=== PATIENT | male | born 1965 | race Caucasian/White ===

== ENCOUNTER 2016-11-11 20:53 | Inpatient (IN) | payer MEDICAID ==
[~2016-11-11] VITALS: Ht 182.9 cm; Wt 52.4 kg
[~2016-11-11 20:53] MED LIST: APAP/HYDROCODON1 T13 PO; BG MC; CLEOCIN HCL300 MG PO; COL100 PO; ECO81 PO; GLU850 PO; HUMI SC; LAC PO; LANTI; LANTI SC; MAC100 PO; THERAGRAN-M1 TA4 PO; ZES10 PO; ZOC10 PO
--- NOTE | 2016-11-12 01:33 | NUR ---
PT PRESENTS TO THE ED WITH THE COMPLAINT OF LEFT KNEE SWELLING. PT REPORTS, "ITS BEEN SWOLLEN FOR A COUPLE OF WEEKS NOW BUT ITS CAUSING ME PAIN NOW SO I CAME IN." THERE IS OBVIOUS SWELLING NOTED TO THE LEFT KNEE. NO ERYTHEMA PRESENT AND SKIN IS NOT HOT TO TOUCH IN COMPARISON TO THE RIGHT KNEE. DR. DICK STATES THAT IT IS A KNEE EFFUSION.
--- NOTE | 2016-11-12 01:34 | NUR ---
DR. DICK DRAINED SYNOVIAL FLUID FROM THE PTS LEFT KNEE.
--- NOTE | 2016-11-12 01:58 | NUR ---
REPORT RECEIVED FROM NAE DIAZ AND ASSUMED CARE OF PATIENT. PATIENT UPDATED ON PLAN OF CARE
[2016-11-12 02:05] LABS: BASOPHIL % 0.5 % (0-2)
[2016-11-12 02:11] LABS: PLATELET COUNT 453 x10^3mcL (130-400); RED CELL DISTRIBUTION WIDTH 15.3 % (11.5-14.5)
[2016-11-12 02:13] LABS: CARBON DIOXIDE 23.4 mmol/L (21-32); CREATININE SERUM 2.7 mg/dL (0.7-1.3); POTASSIUM SERUM 4.3 mmol/L (3.5-5.1)
[2016-11-12 02:17] LABS: BILIRUBIN TOTAL 0.27 mg/dL (0.20-1.00)
[2016-11-12 02:32] LABS: ALBUMIN 1.9 g/dL (3.4-5.0); TOTAL PROTEIN, SERUM 8.7 g/dL (6.4-8.2)
[2016-11-12 04:00] LABS: APPEARANCE FLUID CLOUDY; COLOR FLUID YELLOW; SITE FLUID LEFT; SOURCE FLUID SYNOVIAL FLUID
[2016-11-12 04:01] LABS: RBC FLUID 15800 /cumm; WBC FLUID 57200 /cumm
[2016-11-12 04:12] LABS: rbc morphology (normal/abnorm) ABNORMAL (NORMAL)
[2016-11-12 04:31] LABS: LYMPHOCYTE FLUID 3 %
--- NOTE | 2016-11-12 04:47 | NUR ---
EYES CLOSED, RESPIRATIONS EVEN AND UNLABORED, PT REMAINS ON MONITOR, AWIAINTG DISPO.
--- NOTE | 2016-11-12 06:06 | NUR ---
PATIENT GIVEN URINAL AND ASKED TO URINATE. 24 GAUGE PLACED IN RIGHT HAND.
[2016-11-12 06:34] LABS: MAGNESIUM 1.5 mg/dL (1.8-2.4); PHOSPHOROUS 4.1 mg/dL (2.5-4.9)
[2016-11-12 06:43] LABS: T3 TOTAL 0.71 ng/mL
[2016-11-12 06:44] LABS: FREE T4 1.4 ng/dL (0.76-1.46); FREE THYROXINE INDEX 3.2 ug/dL (1.4-4.5); T4(THYROXINE) 8.8 ug/dL (4.7-13.3)
--- NOTE | 2016-11-12 07:12 | NUR ---
REPORT GIVEN TO JADEN. PT RESTING, EYES CLOSED, RESPIRATIONS ARE EVEN AND UNLABORED.
--- NOTE | 2016-11-12 08:05 | NUR ---
NO DOCUMENTED IV INFO ON PREVIOUS IV FLUIDS
--- NOTE | 2016-11-12 08:10 | NUR ---
REPORT CALLED TO FRANCO DIAZ, SHE WILL ASSUME CARE PRIMARY POST TRASNFER.
[2016-11-12 08:50] VITALS: BP 151/95
[2016-11-12 09:15] VITALS: BP 151/95
--- NOTE | 2016-11-12 09:20 | NUR ---
RECEIVED PT WITH C/O L KNEE SWELLING AND PAIN X3 WEEKS. WITH SERGEI WRAP TO L KNEE C/D/I. R BKA. PT USES WHEELCHAIR. RESP EVEN AND UNLABORED ON RA. C/O 7/10 L KNEE PAIN ON MOVEMENT, NO PAIN AT REST. TOLERABLE AT THIS TIME. IV TO RFA. ORIENTED TO ROOM AND SURROUNDINGS. BED IN LOWEST POSITION, CALL LIGHT WITHIN REACH. WILL CONTINUE TO MONITOR.
[2016-11-12 11:26] LABS: BASOPHIL % 0.6 % (0-2); PLATELET COUNT 389 x10^3mcL (130-400)
[2016-11-12 11:27] LABS: RED CELL DISTRIBUTION WIDTH 15.4 % (11.5-14.5)
[2016-11-12 11:42] LABS: CALCIUM 8.2 mg/dL (8.5-10.1); CARBON DIOXIDE 30.1 mmol/L (21-32); CREATININE SERUM 2.7 mg/dL (0.7-1.3); POTASSIUM SERUM 4.8 mmol/L (3.5-5.1)
--- NOTE | 2016-11-12 12:12 | NUR ---
SPOT CHECKED BLOOD GLUCOSE = 167. PT ASYMPTOMATIC AT THIS TIME. WILL CONTINUE TO MONITOR.
--- NOTE | 2016-11-12 12:38 | NUR ---
PT RESTING IN BED COMFORTABLY. NO ACUTE DISTRESS. PT NOT COMPLAINING OF ANY PAIN. PT COMPLAINING OF KNEE PAIN UPON MOVING, PT STATES IT IS TOLERABLE AT THIS TIME. BED IN LOWEST POSITION. CALL LIGHT WITHIN REACH. WILL CONTINUE TO MONITOR.
--- NOTE | 2016-11-12 13:59 | NUR ---
PT NOT IN ANY ACUTE DISTRESS. PT SITTING UP IN BED EATING LUNCH. PT NOT COMPLAINING OF ANY PAIN AT THIS TIME. BED IN LOWEST POSITION. CALL LIGHT WITHIN REACH. WILL CONTINUE TO MONITOR.
--- NOTE | 2016-11-12 15:57 | NUR ---
NEW IV TO [facility] 2OG STARTED BY DR. HERNANDEZ.
[2016-11-12 17:20] VITALS: BP 135/80
--- NOTE | 2016-11-12 18:22 | NUR ---
PT IN NO ACUTE DISTRESS. PT NOT COMPLAINING OF ANY PAIN AT THIS TIME. BED IN LOWEST POSITION. CALL LIGHT WITHIN REACH. IV FLUIDS INFUSING. WILL CONTINUE TO MONITOR.
--- NOTE | 2016-11-12 18:51 | NUR ---
I HAVE REVIEWED THE DATA COLLECTION BY STUDENT (NAME): MADI OWEN ENTERED ON (DATE/TIME): 11/12/16 I CONCUR WITH THE DATA AND ANY EXCEPTIONS OR COMMENTS ARE LISTED BELOW:
--- NOTE | 2016-11-12 18:53 | NUR ---
NURSING CO-SIGN THE DOCUMENTATION ENTERED BY THE IP HAS BEEN REVIEWED. REVIEWED/CO-SIGNED BY: Slime Jama DOCUMENTATION DONE BY: MADI OWEN
--- NOTE | 2016-11-12 20:00 | NUR ---
ASLEEP, EASILY AWAKENED. ORIENTED X 4. SPEECH CLEAR AND APPROPRIATE. HOB ELEVATED 30 DEG. UPPER SIDE RAILS IN RAISED POSITION, BED IN LOWEST POSITION. CALL LIGHT WITHIN EASY REACH. BREATHING EVEN AND UNLABORED ON ROOM AIR. IVF OF NS AT 100ML/HR. DENIES HAVING PAIN AT THIS TIME. DRESSING TO LEFT KNEE CDI. ELEVATED ON PILLOW.
[2016-11-12 21:41] VITALS: BP 131/67
--- NOTE | 2016-11-12 23:24 | NUR ---
URINE SPECIMEN SENT TO LAB
--- NOTE | 2016-11-12 23:25 | NUR ---
AWAKE AND ALERT, ASKED TO HAVE SOME COFFEE.
[2016-11-13] LABS: microscopic required? YES; urine erythrocyte 2+ (NEGATIVE)
--- NOTE | 2016-11-13 00:40 | NUR ---
ua positive for trace leukocytes and few budding yeast. informed dr. hernandez via [facility].
--- NOTE | 2016-11-13 00:57 | NUR ---
DR NEVAREZ CONFIRMED AWARE OF UA RESULTS
--- NOTE | 2016-11-13 03:52 | NUR ---
EYES CLOSED, BREATHING EVEN AND UNLABORED ON ROOM AIR. CALL LIGHT WITHIN EASY REACH.
[2016-11-13 06:22] VITALS: BP 156/77
[2016-11-13 06:42] LABS: BASOPHIL % 0.4 % (0-2)
[2016-11-13 06:53] LABS: PLATELET COUNT 441 x10^3mcL (130-400); RED CELL DISTRIBUTION WIDTH 15.7 % (11.5-14.5)
[2016-11-13 06:59] LABS: CALCIUM 7.7 mg/dL (8.5-10.1); CARBON DIOXIDE 22.5 mmol/L (21-32); CREATININE SERUM 2.1 mg/dL (0.7-1.3); MAGNESIUM 2.1 mg/dL (1.8-2.4); PHOSPHOROUS 2.9 mg/dL (2.5-4.9); POTASSIUM SERUM 4.4 mmol/L (3.5-5.1)
--- NOTE | 2016-11-13 07:15 | NUR ---
ENDORSED TO NURSE MICHELLE. DENIES HAVING PAIN AT THIS TIME. AWAKE AND ALERT.
[2016-11-13 07:30] VITALS: BP 154/83
--- NOTE | 2016-11-13 12:22 | NUR ---
PT IN NO ACUTE DISTRESS. PT NOT COMPLAINING OF ANY PAIN AT THIS TIME. PT RESTING COMFORTABLY IN BED. LFT KNEE ELEVATED WITH PILLOW. NO DRAINAGE. IV FLUIDS INFUSING. BED IN LOWEST POSITION. CALL LIGHT WITHIN REACH. WILL CONTINUE TO MONITOR.
[2016-11-13 13:53] VITALS: BP 156/90
--- NOTE | 2016-11-13 14:20 | NUR ---
PT IN NO ACUTE DISTRESS. PT RESTING COMFORTABLY NOT COMPLAINING OF ANY PAIN AT THIS TIME. IV FLUIDS INFUSING. BED IN LOWEST POSITION. CALL LIGHT WITHIN REACH. WILL CONTINUE TO MONITOR.
--- NOTE | 2016-11-13 16:50 | NUR ---
DR. FLORES AT BEDSIDE EARLIER PERFORMING PROCEDURE. ASPIRATED 90 ML FLUID FROM L KNEE. BAND AID AND SERGEI WRAP APPLIED TO L KNEE. PT C/O 10/10 L KNEE PAIN, WILL MEDICATE ORDERED.
[2016-11-13 17:12] VITALS: BP 173/91
[2016-11-13 18:00] LABS: APPEARANCE FLUID CLOUDY; COLOR FLUID PALE YELLOW; SITE FLUID LEFT; SOURCE FLUID SYNOVIAL FLUID
[2016-11-13 18:23] LABS: WBC FLUID 51000 /cumm
[2016-11-13 18:24] LABS: LYMPHOCYTE FLUID 5 %; RBC FLUID 16600 /cumm
[2016-11-13 19:26] LABS: RED BLOOD CELLS 3.41 M/mm3 (4.52-5.90)
--- NOTE | 2016-11-13 19:31 | NUR ---
AAO X 4. SPEECH CLEAR AND APPROPRIATE. BREATHING EVEN AND UNLABORED ON ROOM AIR. HOB ELEVATED 30 DEG. WITH MALE VISITOR. PT IVF AT 100ML/HR. SERGEI WRAP TO LEFT LEG CDI.
[2016-11-13 19:34] LABS: IRON 17 ug/dL (65-170); TOTAL IRON BINDING CAPACITY 143 ug/dL (250-450)
[2016-11-13 20:18] VITALS: BP 112/62
[2016-11-14] VITALS (7 sets, daily range): BP systolic 141–204; BP diastolic 79–114
--- NOTE | 2016-11-14 00:58 | NUR ---
EYES CLOSED, BREATHING EVEN AND UNLABORED ON ROOM AIR. CALL LIGHT WITHIN EASY REACH.
--- NOTE | 2016-11-14 06:01 | NUR ---
BLOOD SUGAR 55, TEST REPEATED 56. AWAKE AND ALERT. DID NOT WANT THE D50 IVP. DRANK 1 CUP APPLE JUICE WITH 3 PACKS SUGAR, ATE 1 CUP PUDDING, EATING SANDWICH. INFORMED DR. NEVAREZ.
--- NOTE | 2016-11-14 06:33 | NUR ---
BLOOD SUGAR RECHECKED, 74/MIN. PT AWAKE AND ALERT. PROVIDED WITH 2 CUPS OF PUDDING AND 1 CUP APPLE JUICE.
--- NOTE | 2016-11-14 06:33 | NUR ---
DR. KEENE IN ROOM, INFORMED BLOOD SUGAR THIS AM WAS 55.
--- NOTE | 2016-11-14 07:11 | NUR ---
TELEMONITOR TO TELE #[id number], SINUS RHYTHM. AWAKE AND ALERT, BREATHING EVEN AND UNLABORED. CALL LIGHT WITHIN EASY REACH.
--- NOTE | 2016-11-14 07:12 | NUR ---
ENDORSED TO NURSE CASTANEDA.
--- NOTE | 2016-11-14 07:12 | NUR ---
NOTED NEW ORDER REDUCING LEVEMIR DOSE TO 20 UNITS AT NIGHT.
--- NOTE | 2016-11-14 07:30 | NUR ---
AAO X4.DENIES ANY PAIN/DISCOMFORT AT THE MOMENT.LUNGS CLEAR.ON SR ON THE MONITOR.IVF NS GOING AT 100 ML/HR INFUSING WELL.L KNEE WITH SERGEI BANDAGE CDI.S/P L KNEE FLUID ASPIRATIN ON 11/13. ALSO HX OF R BKA.CALL LIGHT WITHIN REACH.INSTRUCTED TO CALL FOR ANY PAIN/DISCOMFORT.WILL CONTINUE TO MONITOR PT.
--- NOTE | 2016-11-14 08:50 | NUR ---
AND MEDICINE TEAM AT BEDSIDE.PT IN THE RESTROOM.WILL COME BACK LATER.INFORMED PRIMARY NURSE THAT PT TO D/C HOME IF OK WITH .
[2016-11-14 16:34] LABS: AMPHETAMINE QUAL UR NONE DETECTED (NEG <=1000)
--- NOTE | 2016-11-14 17:33 | NUR ---
GAVE PT NITRO 0.4 MG SL FOR FA=958/99 WILL RECHECK BP AFTER.
--- NOTE | 2016-11-14 17:59 | NUR ---
RECHECKED FF=516/93 (117) HR=90 AFTER NITRO SL.
--- NOTE | 2016-11-14 18:25 | NUR ---
NO SIGNIFICANT CHANGE NOTED.WILL ENDORSE TO NEXT SHIFT.
--- NOTE | 2016-11-14 20:15 | NUR ---
PT A/A/O X4. DENIES DIZZINESS AND HEADACHE. BREATH SOUNDS CLEAR. BREATHING EVEN AND UNLABORED ON ROOM AIR. DENIES CHEST PAIN AND PRESSURE. BOWEL SOUNDS ACTIVE. NO C/O N/V AND ABD PAIN. DRESSING ON THE LEFT KNEE NOTED C/D/I. BKA NOTED ON THE RLE. NEW IV PLACED ON THE RIGHT SHOULDER 20G INFUSING WITH NS AT 100 ML/HR. IV ON THE VINCENT LEAKING AND TAKEN OF. MADE PT COMFORTABLE. PLACED CALL LIGHT WITH IN REACH. WILL CONTINUE TO MONITOR.
--- NOTE | 2016-11-14 21:00 | NUR ---
BLOOD PRESSURE OF THE PT 207/[address] NEVAREZ NOTIFIED. ORDERED LISINOPRIL PO. PT TOLERATED IT WELL. WILL CONITNUE TO MONITOR.
--- NOTE | 2016-11-14 22:20 | NUR ---
PT BP IS 186/103 HR 94. PT [address] NEVAREZ NOTIFIED. WAITING FOR NEW ORDERS. WILL CONTINUE TO MONITOR.
--- NOTE | 2016-11-14 23:07 | NUR ---
GAVE PT METOPROLOL PO FOR HIGH BP. WILL CONTINUE TO MONITOR.
[2016-11-15 00:10] VITALS: Ht 182.9 cm; Wt 52.4 kg
[2016-11-15 01:38] VITALS: BP 161/85
--- NOTE | 2016-11-15 01:42 | NUR ---
BP 161/85 HR [address] NEVAREZ NOTIFIED. WILL CONTINUE TO MONITOR.
--- NOTE | 2016-11-15 01:49 | NUR ---
PATIENTS BP 161/83 HR 79. GAVE PT NITRO SUBLIGUAL. DR. NEVAREZ NOTIFIED. WILL CONTINUE TO MONITOR.
--- NOTE | 2016-11-15 02:30 | NUR ---
BP 163/83. WILL CONTINUE TO MONITOR.
--- NOTE | 2016-11-15 02:54 | NUR ---
PT C/O GENERALIZED PAIN. GAVE PT MORPHINE IVP. PT TOLERATED IT WELL. WILL CONTINUE TO MONITOR.
[2016-11-15 05:19] VITALS: BP 142/89
--- NOTE | 2016-11-15 05:20 | NUR ---
PT QUIET AND RESTING. NO C/O PAIN THUS FAR. BP 142/89, HR 73. DR. NEVAREZ AWARE. IV INTACT AND INFUSING ORDER. WILL ENDORSE TO THE AM NURSE ACCORDINGLY.
--- NOTE | 2016-11-15 06:43 | NUR ---
PT C/O PAIN. GAVE PT MORPHINE IVP. PT TOLERATED IT WELL. WILL ENDORSE TO THE AM NURSE ACCORDINGLY.
--- NOTE | 2016-11-15 07:56 | NUR ---
RECEIVED PT LAYING IN BED AWAKE AND ALERT. IV TO R SHOULDER APPEARS PATENT AND INFUSING WELL. PT STATES THAT HE FEELS HIS SUGAR FEELS LOW. LAST ACCUCHECK WAS 86. GAVE HIM TO CUPS OF APPLE JUICE. WILL REASSESS WITHIN HALF HOUR. CALL LIGHT WITHIN REACH, BED IN LOWEST POSITION. WILL CONTINUE TO MONITOR
[2016-11-15 09:23] VITALS: BP 150/90
--- NOTE | 2016-11-15 10:59 | NUR ---
PT LAYING IN BED WATCHING TV, NO APPARENT SIGNS OF ACUTE DISTRESS NOTED AT THIS TIME. IV INFUSING WELL. CALL LIGHT WIHTIN REACH. BED IN LOWEST POSITION. WILL CONTINUE TO MONITOR
--- NOTE | 2016-11-15 12:35 | NUR ---
PT BP 164/89 HR 75. GIVEN NITRO SUBLINGUAL PRN. STOPPED IV FLUIDS AT THIS TIME. PT DENIES PAIN OR DISCOMFORT. WILL CONTINUE TO MONITOR. CALL LIGHT WITHIN REACH, BED IN LOWEST POSITION
[2016-11-15 12:56] VITALS: BP 164/89
--- NOTE | 2016-11-15 13:23 | NUR ---
DR. CHOU AWARE OF PT BP, PRN NITRO, AND HOLD ON IV FLUIDS. WILL CONTINUE TO MONITOR
[2016-11-15] MEDS ORDERED: LEVAQUIN250 M1 PO (15:25)
--- NOTE | 2016-11-15 15:28 | NUR ---
PT RESTING IN BED WATCHING TV. SPOKE TO PT IN REGARDS TO DISCHARGE. ACCORDING TO DOCTOR, PT WILL NOT BE DISCHARGING UNTIL THE BLOOD CULTURE RESULT COME BACK, [facility] IS EXPECTED TOMORROW. PT APPEARS RECEPTIVE AND AGREES TO PLAN OF CARE. CALL LIGHT WITHIN REACH. BED IN LOWEST POSITION. WILL CONTINUE TO MONITOR
[2016-11-15] MEDS ORDERED: LAC PO (15:38)
[2016-11-15] MEDS ORDERED: CATAPRES0.1 MG PO (15:38)
--- NOTE | 2016-11-15 16:05 | NUR ---
Initial Nutrition Assessment Dx: Left knee effusion, possible septic joint PMHx: Right BKA (2011), I&D of left foot abscess (November 2014) PSHx:Right BKA (2011) Labs: (11/13) BL, BUN:29H, Cr:2.1H, Ca:7.7L,H/H:7.9/25L (11/12) Alb:1.9L, HDL:30L, Lipase:62L, A1c:7.4H, Meds: Colace, Ferrous Sulfate, Humalog, Humilin, Lactinex, Levemir, Prilosec, NS IVF, Theragran, Zofran. Diet:CCHO PO Intake: (11/12) snack: sandwich (11/13) B:100%, L:90%, snack: sandwich, (11/14) B:100%. L:50%, D:40%, snack: sandwich. (11/15) B:100%, grahma crakers, jello pudding, apple juice Ht: 72in, 6ft Wt: 115#, 52.36kg, Corrected BMI with current body weight and BKA is 22.7kg/m2 (normal weight) IBW: 167#, 76kg with BKA %IBW: 99% UBW:160#, per pt. (11/12) wt: 72.57kg, 158# Age:51 Food Allergies:None Skin:aspiration of the left knee, Jonathan:18 Edema:LLE GI: Last BM 11/13 Pt admitted with left knee swelling 2/2 possible infectious arthritis with effusion, per H&P. Pt is s/p left knee joint drainage x 2 with white blood cells found in fluid. Dr. Reyes cleared the pt as long as culture and sensitivities was negative. Late in the day, the culture from the synovial fluid came back positive for Staph aureus and additional antibiotics were ordered. Nurses were trying to obtain a new line in the right nath d after discovering the peripheral line obtained earlier had failed, per progress note 11/14. During visit, pt reported usual body weight of 160#, not admit wt of 115#. Pt looks closer to UBW and weight recorded on 11/12 was 72.57kg, 158#. Possible discharge today. Problem with: N:No V:No D:No C:No Problems with: Chewing: Swallowing: Current appetite: good Recent wt change:2# wt loss %wt change:1.25% Vitamin/Supplement use:No Special diet at home:Regular Physical activity:No Education: pt declined education Estimated Nutritional Needs Based on ideal body weight 76kg with BKA Energy: 1900-2280kcal/d (25-30kcal/kg for adult maintenance) Protein: 76g/d (1g/kg for adult maintenace Fluid: 1900-2280ml/d (1 ml/kcal) or per doctor Nutrition Diagnosis 1. Altered nutrition labs realted to diabetes as evidenced by A1c:7.4 Intervention 1.Recommend continue with current diet order. Monitor/Evaluate Goal: PO intake at least 75% of estimated needs Monitor: PO intake, Labs, GI function F/U in 7 days as low risk 11/22
--- NOTE | 2016-11-15 16:54 | NUR ---
PT BP 182/[address] VELEZ AND HE IS AWARE. ORDER PUT IN FOR CATAPRES PO. CALLED PHARMACY TO GET ORDER VERIFIED SO THAT CAN PROCEED WITH ADMINISTRATION OF MEDICATION
[2016-11-15 17:50] VITALS: BP 142/97
--- NOTE | 2016-11-15 18:18 | NUR ---
PT BP DOWN TO 142/97. CALL LIGHT WITHIN REACH. WILL CONTINUE TO MONITOR
--- NOTE | 2016-11-15 19:30 | NUR ---
PT IS A/O X4, VERBAL RESPONSIVE, ABLE TO TELL WHAT HE NEEDS. LUNG SOUND CLEAR BILATERAL, NO COUGH, NO SOB, PT IS ON TELE 22, NSR, DENY ANY CHEST PAIN OR DISCOMFORT, BOWEL SOUND PRESENT ALL 4 QUADRANTS, NO DISTENTION, NO TENDER. PT HAS RIGHT BKA, LEFT KNEE ARE SWELLING, S/P ASPIRATION SIDE AT LEFT KNEE WAS COVERED WITH BANDAID, NO BLEEDING, NO DRAINAGE, IV AT RIGHT SHOULDER, DRESSING INTACT, FLUSHED WELL, ALL ADLS ASSIST, ALL NEED MET, CALL LIGHT IN REACH, WILL CONTINUE TO MONITOR.
--- NOTE | 2016-11-15 19:40 | NUR ---
PT C/O HAS HEROIN WITHDRAW, PT STATE FELT ANXIOUS AT THE TIME, CALLED DR. CHAVEZ, REGARDING THE PT SITUATION, MADE AWARE.
--- NOTE | 2016-11-15 21:00 | NUR ---
TALKED TO DR. CHAVEZ AGAIN REGARDING THE PT STATE HAS WITHDRAW FROM HEROIN, DR. CHAVEZ WENT TO PT ROOM AND ASSESS THE PT. STATE WILL ORDER ATIVAN FOR THE PT. WAITING FOR NEW ORDER.
[2016-11-16] VITALS (8 sets, daily range): BP systolic 132–190; BP diastolic 82–100
--- NOTE | 2016-11-16 05:09 | NUR ---
PT IS AWAKE, VERBAL RESPONSIVE, DENY ANY RESPIRATORY DISTRESS, DENY ANY PAIN OR DISCOMFORT, IV AT RIGHT SHOULDER, NO LEAKING, NO INFILTRATION. ALL ADLS ASSIST, ALL NEED MET, CALL LIGHT IN REACH, WILL CONTINUE TO MONITOR.
--- NOTE | 2016-11-16 05:41 | NUR ---
REPORT TO DR. CHAVEZ REGARDING THE PT B/P IS 180/91 AT THIS MOMENT, DR. CHAVEZ MADE AWARE, WAITING FOR NEW ORDER.
--- NOTE | 2016-11-16 07:15 | NUR ---
PT ON WHEELCHAIR. ABLE TO LET NEEDS KNOWN. NOTICEABLE LEFT KNEE SWELLING. PT ABLE TO TRANSFER INDEPENDENTLY. IV TO RIGHT SHOULDER. LOCKED #20. WILL CONTINUE TO MONITOR.
--- NOTE | 2016-11-16 11:20 | NUR ---
PT C/O AGITATION. ADMINISTERED MEDICATION PER EMAR. PT TOLERATED WELL. WILL CONTINUE TO MONITOR.
--- NOTE | 2016-11-16 12:15 | NUR ---
PT STILL REMAINS AGITATED. PT STATES HE WAS DOING HEAVY HEROIN USE. CONTACTED DR. VELEZ. WILL CONTINUE TO MONITOR.
--- NOTE | 2016-11-16 12:50 | NUR ---
PT STATES SURGEON EXPLAINED PROCEDURE BENEFITS AND RISKS. WITNESSED CONSENT TO SURGERY.
--- NOTE | 2016-11-16 15:35 | NUR ---
PT SITTING AT SIDE OF BED. STATES HEADACHE HAS SUBSIDED. STATES KNEE PAIN HAS DCREASED 07/21. MOTHER AT BEDSIDE. CALL LIGHT WITHIN REACH.
--- NOTE | 2016-11-16 19:50 | NUR ---
PT IS A/O X4, VERBAL RESPONSIVE, ABLE TO TELL WHAT HE NEEDS. LUNG SOUND CLEAR BILATERAL, NO COUGH, NO SOB, PT DENY ANY CHEST PAIN OR DISCOMFORT, BOWEL SOUND PRESENT ALL 4 QUADANTS, NO DISTENTION, NO TENDER. PT HAS RIGHT BKA, AND LEFT KNEE IS SWELLING, PT IS GOING TO SURGERY TOMORROW. IV AT RIGHT SHOULDER, NO LEAKING, NO INFILTRATION. ALL ADLS ASSIST, ALL NEED MET, CALL LIGHT IN REACH, WILL CONTINUE TO MONITOR.
--- NOTE | 2016-11-16 20:30 | NUR ---
PT STATE HE HAS HEROIN WITHDRAW, REQUEST FOR ATIVAN IVP. CALLED AND TALKED TO DR. CHAVEZ, MADE AWARE, WAITING FOR NEW ORDER.
--- NOTE | 2016-11-16 22:30 | NUR ---
GAVE THE ATIVAN IVP AT 2100, RECHECKED PT. PT IS CALM AND STATE HE IS BRYAN NOW. WILL CONTINUE TO MONITOR THE PT.
--- NOTE | 2016-11-16 22:58 | NUR ---
PT B/P IS 190/99, GIVE THE NITRO SL, RECHECK AGAIN, PT B/P STILL 188/100, CALL THE DR. CHAVEZ, WAITING FOR NEW ORDER.
[2016-11-17 01:00] VITALS: BP 122/63
--- NOTE | 2016-11-17 01:00 | NUR ---
RECHECK THE PT B/P 122/63, HR 78, WILL CONTINUE TO MONITOR THE PT
--- NOTE | 2016-11-17 05:16 | NUR ---
PT IS AWAKE AND VERBAL RESPONSIVE, DENY ANY RESPIRATORY DISTRESS, DENY ANY PAIN OR DISCOMFORT, IV AT RIGHT SHOULDER, NO LEAKING, NO INFILRATION. PT HAS BEEN NPO SINCE MID NIGHT, ALL ADLS ASSIST ALL NEED MET, CALL LIGHT IN REACH, WILL CONTINUE TO MONITOR.
[2016-11-17 05:56] VITALS: BP 144/68
--- NOTE | 2016-11-17 06:02 | NUR ---
PT START THROW UP, AND ZOFRAN IVP IS GIVEN, BUT PT STATE IT FROM HEROIN WITHDRAW, ASKED IF HE CAN HAS ANOTHER ATIVAN IVP. CALLED AND TALKED TO DR. CHAVEZ, DR. CHAVEZ MADE AWARE, WAITING FOR NEW ORDER.
--- NOTE | 2016-11-17 07:52 | NUR ---
PT IS A/O X4, VERBAL RESPONSIVE, LUNG SOUND CLEAR BILATERAL, NO COUGH, NO SOB, DENY ANY CHEST PAIN OR DISCOMFORT, BOWEL SOUND PRESENT ALL 4 QUADANTS, NO DISTENTION, NO TENDER. PT HAS SWELLING AT LEFT KNEE, RIGHT BKA, PT IV AT RIGHT SHOULDER START LEAKING, UNABLE TO GET IV ACCESS, CALLED ER NURSE, CAME TO START THE IV AT LEFT IJ, ALL ADLS ASSIST, ALL NEED MET, CALL LIGHT IN REACH, WILL CONTINUE TO MONITOR.
[2016-11-17 08:16] LABS: CALCIUM 7.8 mg/dL (8.5-10.1); CARBON DIOXIDE 24.4 mmol/L (21-32); CREATININE SERUM 1.9 mg/dL (0.7-1.3); POTASSIUM SERUM 4.3 mmol/L (3.5-5.1)
[2016-11-17 10:34] VITALS: BP 164/87
--- NOTE | 2016-11-17 11:44 | NUR ---
PT WENT TO OR IN NO ACUTE DISTRESS.
[2016-11-17 12:20] LABS: BASOPHIL % 0.5 % (0-2); PLATELET COUNT 395 x10^3mcL (130-400)
[2016-11-17 12:27] LABS: RED CELL DISTRIBUTION WIDTH 15.6 % (11.5-14.5)
[2016-11-17 14:14] VITALS: BP 159/83
--- NOTE | 2016-11-17 14:14 | NUR ---
PT BACK FROM OR. SLIGHTLY DROWSY BUT AROUSABLE. RESP EVEN AND UNLABORED ON RA. NO SOB NOTED. DRESSING AND SERGEI WRAP TO L KNEE. NILDA DRAIN TO L KNEE WITH SANGUINEOUS DRAINAGE. STATES HIS PAIN IS "SO-SO," DOES NOT WANT TO GIVE NUMBER FOR PAIN SCALE. DR. GARCIA AT BEDSIDE ASSESSING PT. WILL CONTINUE TO MONITOR.
[2016-11-17 18:05] VITALS: BP 104/74
--- NOTE | 2016-11-17 18:29 | NUR ---
PT RESTING IN BED. NO ACUTE DISTRESS. NO C/O PAIN AT THIS TIME. IVF INFUSING. DRESSING TO L KNEE C/D/I. NILDA DRAIN EMPTIED, 165 ML OUT WITH CLOTS. L KNEE ELEVATED. BED IN LOWEST POSITION, CALL LIGHT WITHIN REACH. FAMILY AT BEDSIDE. WILL ENDORSE TO INCOMING SHIFT.
--- NOTE | 2016-11-17 20:00 | NUR ---
AAO X 4. SPEECH CLEAR AND APPROPRIATE. HOB ELEVATED 30 DEG. LEFT LEG ELEVATED ON PILLOW. NILDA TO LEFT LEG DRAINING RED COLORED FLUID, SERGEI DRESSING CDI. BREATHING EVEN AND UNLABORED ON ROOM AIR. MOTHER IN ROOM. NOTED PT HAS LARGE BOTTLE OF REGULAR PEPSI IN ROOM. PT HAS BEEN DRINKING IT. EXPLAINED TO PT NEED TO AVOID CONCENTRATED SWEETS. OFFERED DIET SODA ALTERNATIVE. PT REFUSED.
[2016-11-17 22:11] VITALS: BP 139/69
--- NOTE | 2016-11-18 01:13 | NUR ---
EYES CLOSED, BREATHING EVEN AND UNLABORED ON ROOM AIR. CALL LIGHT WITHIN EASY REACH. HOB ELEVATED 30 DEG.
[2016-11-18 06:13] VITALS: BP 139/62
[2016-11-18 06:37] LABS: BASOPHIL % 0.4 % (0-2); PLATELET COUNT 380 x10^3mcL (130-400)
[2016-11-18 06:50] LABS: CALCIUM 7.6 mg/dL (8.5-10.1); CARBON DIOXIDE 24.2 mmol/L (21-32); CREATININE SERUM 2.1 mg/dL (0.7-1.3); POTASSIUM SERUM 4.2 mmol/L (3.5-5.1)
[2016-11-18 06:54] LABS: RED CELL DISTRIBUTION WIDTH 16.1 % (11.5-14.5)
--- NOTE | 2016-11-18 06:58 | NUR ---
ASLEEP, EASILY AWAKENED. BREATHING REMAINED EVEN AND UNLABORED ON ROOM AIR. TOTAL OF 60ML DRAINED FROM NILDA DRAIN TO LEFT LEG. IVF OF NS AT 100ML/HR.
--- NOTE | 2016-11-18 07:34 | NUR ---
RECEIVED PT AAOX4. RESP EVEN AND UNLABORED ON RA. C/O MILD L KNEE DISCOMFORT BUT TOLERABLE AT THIS TIME. NILDA DRAIN TO L KNEE. DRESSING AND SERGEI WRAP C/D/I. IVF INFUSING TO LEJ. BED IN LOWEST POSITION, CALL LIGHT WITHIN REACH. WILL CONTINUE TO MONITOR.
[2016-11-18 08:50] VITALS: BP 131/78
[2016-11-18 10:00] VITALS: BP 138/78
--- NOTE | 2016-11-18 12:28 | NUR ---
PT RESTING IN BED. NO ACUTE DISTRESS. C/O 8/10 L KNEE PAIN, GIVEN MORPHINE ORDERED. IVF INFUSING. BED IN LOWEST POSITION, CALL LIGHT WITHIN REACH. WILL CONTINUE TO MONITOR.
--- NOTE | 2016-11-18 18:18 | NUR ---
PT RESTING IN BED. NO ACUTE DISTRESS. C/O HEARTBURN, GIVEN PRILOSEC ORDERED. STATES L KNEE PAIN IS TOLERABLE AT THIS TIME. NILDA DRAIN EMPTIED, 50 ML SEROSANGUINEOUS OUT. IVF INFUSING. BED IN LOWEST POSITION, CALL LIGHT WITHIN REACH. WILL ENDORSE TO INCOMING SHIFT. .
[2016-11-18 18:23] VITALS: BP 125/75
--- NOTE | 2016-11-18 19:00 | NUR ---
EYES CLOSED, EASILY AWAKENED. PREFERS TO SLEEP WITH HEAD AT LOWER PART OF BED. BREATHING EVEN AND UNLABORED ON ROOM AIR. IVF OF NS AT 100ML/HR. DRESSING TO LEFT KNEE MARIA DE JESUS, NILDA DRAINING RED FLUID.
[2016-11-18 20:42] VITALS: BP 117/73
--- NOTE | 2016-11-18 21:48 | NUR ---
ROQUE SHIPLEY AWARE PT REFUSED TAYLOR TODD
--- NOTE | 2016-11-18 23:45 | NUR ---
EYES CLOSED, BREATHING EVEN AND UNLABORED ON ROOM AIR. UPPER SIDE RAILS KEPT RAISED. HOB KEPT ELEVATED 30 DEG. CALL LIGHT WITHIN EASY REACH, IVF OF NS AT 100ML/HR INFUSING TO RIGHT ELBOW 24G ANGIOCATH. NO INFILTRATION NOTED.
[2016-11-19] VITALS (7 sets, daily range): BP systolic 138–178; BP diastolic 72–91
--- NOTE | 2016-11-19 02:16 | NUR ---
IV HARD TO FLUSH. WILL ATTEMPT TO PUT NEW IV IN. ASKED FOR SLEEPING PILL. PAGED DR. NEVAREZ.
--- NOTE | 2016-11-19 02:19 | NUR ---
NOTED NEW ORDER FOR AMBIEN 5MG PO
--- NOTE | 2016-11-19 06:54 | NUR ---
STATED DID NOT SLEEP WELL IN SPITE OF TAKING SLEEPING PILL. BREATHING REMAINED EVEN AND UNLABORED. IVF OF NS AT 100ML/HR.
[2016-11-19 07:03] LABS: BASOPHIL % 0.5 % (0-2); PLATELET COUNT 390 x10^3mcL (130-400)
[2016-11-19 07:15] LABS: RED CELL DISTRIBUTION WIDTH 16.1 % (11.5-14.5)
[2016-11-19 07:16] LABS: rbc morphology (normal/abnorm) ABNORMAL (NORMAL)
[2016-11-19 07:27] LABS: CALCIUM 7.5 mg/dL (8.5-10.1); CARBON DIOXIDE 21.5 mmol/L (21-32); CREATININE SERUM 1.8 mg/dL (0.7-1.3); POTASSIUM SERUM 4.2 mmol/L (3.5-5.1)
--- NOTE | 2016-11-19 07:30 | NUR ---
AAO X4.DENIES ANY PAIN/DISCOMFORT.LUNGS CLEAR.PT NON-TELE.IVF NS GOING AT 100 ML/HR INFUSING WELL.L KNEE WITH SERGEI WRAP AND NILDA DRAIN DRAINING SEROUSANGUINOUS FLUID.S/P OPEN IRRIGATON ANG WASHOUT L KNEE.R BKA HX.CALL LIGHT WITHIN REACH.INSTRUCTED TO CALL FOR ANY PAIN/DISCOMFORT.PT VERBALIZES UNDERSTANDING.WILL CONTINUE TO MONITOR PT.
--- NOTE | 2016-11-19 08:45 | NUR ---
AND MEDICINE TEAM AT BEDSIDE.INFORMED PT ABOUT THE PLAN OF CARE.PT COOPERATIVE.
--- NOTE | 2016-11-19 14:52 | NUR ---
PT GIVEN DILAUDID 0.5 MG IVP ORDERED FOR PICC LINE INSERTION.CONSENT SIGNED FOR PICC LINE INSERTION.
--- NOTE | 2016-11-19 14:57 | NUR ---
PICC LINE INSERTION STARTED BY AND .US AT BEDSIDE.
--- NOTE | 2016-11-19 17:00 | NUR ---
PICC LINE INSERTION DONE.PT TOLERATED IT WELL.
--- NOTE | 2016-11-19 18:24 | NUR ---
NO SIGNIFICANT CHANGE NOTED,WILL ENDORSE TO NEXT SHIFT.
--- NOTE | 2016-11-19 19:36 | NUR ---
PT IS AAOX4. LUNG SOUNDS CTA ON RA. PT IS A MED/SURG PT. FAMILY AT BEDSIDE. ACTIVE BOWEL SOUNDS IN ALL 4 QUADRANTS. PICC LINE IN LUE INFUSING 100 ML/HR NS. THERE IS A NILDA DRAIN IN THE LEFT LEG R/T INCISION AND WASH OUT THAT WAS PERFORMED ON 11-17. THE DRESSING IS CDI. THE BED IS IN THE LOWEST POSITION AND THE CALL LIGHT IS WITHIN REACH. DENIES ANY PAIN AT THIS TIME. WILL CONTINUE TO MONITOR.
--- NOTE | 2016-11-19 20:20 | NUR ---
BP 178/91 (109) HR 64. DR. NEVAREZ MADE AWARE. WILL MEDICATE WITH SCHEDULED CARDIAC MEDICATIONS AND GIVE PT PAIN MEDICATION FOR STATED 9/10 PAIN EVERYWHERE. WILL REASSESS BP AFTERWARDS.
--- NOTE | 2016-11-19 20:31 | NUR ---
GLUCOSE 179. DR. NEVAREZ INSTRUCTED TO HOLD THE LEVEMIR 20 U BECAUSE THE PT HAS NOT BEEN EATING ALL DAY. THE GLUCOSE WILL STILL BE COVERED BY 3U REG.
--- NOTE | 2016-11-19 21:37 | NUR ---
PAGEGATED DR. NEVAREZ ABOUT PT'S NEW BP OF 154/83 (107). HR 64.
--- NOTE | 2016-11-20 00:53 | NUR ---
PT IS RESTING COMFORTABLY IN BED. NO ACUTE DISTRESS IS NOTED. BED IS IN THE LOWEST POSITION AND CALL LIGHT IS WITHIN REACH. WILL CONTINUE TO MONITOR.
[2016-11-20 05:56] VITALS: BP 144/76
--- NOTE | 2016-11-20 06:11 | NUR ---
THE PT IS RESTING, ALL NEEDS HAVE BEEN MET THROUGHOUT THE NIGHT. THE BED IS IN THE LOWEST POSITION WITH THE CALL LIGHT WITHIN REACH. EVEN, UNLABORED BREATHING, IV INFUSING WELL. WILL ENDORSE TO MORNING SHIFT.
[2016-11-20 06:39] LABS: BASOPHIL % 0.6 % (0-2); PLATELET COUNT 362 x10^3mcL (130-400)
[2016-11-20 06:41] LABS: RED CELL DISTRIBUTION WIDTH 15.6 % (11.5-14.5)
[2016-11-20 06:57] LABS: CALCIUM 7.4 mg/dL (8.5-10.1); CARBON DIOXIDE 20.3 mmol/L (21-32); CREATININE SERUM 1.7 mg/dL (0.7-1.3); POTASSIUM SERUM 4.2 mmol/L (3.5-5.1)
--- NOTE | 2016-11-20 09:06 | NUR ---
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
[2016-11-20 09:09] VITALS: BP 117/69
--- NOTE | 2016-11-20 10:21 | NUR ---
ABLE TO TAKE ALL PO MEDS WITHOUT GI DISTRESS, C/O FEELING ANXIOUS, ALL LIGHTS DIMMED, TV TURNED OFF, ADMINISTERED ATIVAN DOSE ORDERED, CALL LIGHT WITHIN REACH. DR GALLEGOS AT RN STATION, MADE AWARE OF NEED FOR PO PAIN MED, MD WILL ENTER ORDER.
--- NOTE | 2016-11-20 13:25 | NUR ---
RESTING IN BED, ONLY ATE ABOUT 50% OF LUNCH TRAY, REPORTS NOT "LIKING VEGETABLES" EDUCATION REINFORCED ON BENEFITS OF HEALTHY DIET, VERBALIZED UNDERSTANDING, DENIES DISCOMFORT AT THIS TIME, CALL LIGHT WITHIN REACH, WILL CONTINUE TO PROVIDE CARE.
[2016-11-20 13:44] VITALS: BP 106/63
[2016-11-20 17:36] VITALS: BP 116/65
--- NOTE | 2016-11-20 17:54 | NUR ---
DR FLORES AT FACILITY, REMOVED J-P DRAIN AND CHANGED DRESSING.
[2016-11-20] MEDS ORDERED: LEVAQUIN750 MG PO (18:37)
[2016-11-20] MEDS ORDERED: RIFAMPIN300 MG PO (18:37)
--- NOTE | 2016-11-20 19:25 | NUR ---
PT IS RESTING IN BED WITH NO ACUTE DISTRESS NOTED. PT IS MED/SURG. DENIES ANY PAIN AT THIS TIME. THERE IS A PICC LUE RUNNING 100 ML/HR NS. BOWEL SOUNDS ACTIVE, WOUND DRESSING IN LEFT KNEE NOTED, CDI. THE BED IS IN THE LOWEST POSITION AND CALL LIGHT WITHIN REACH. BAG OBTAINED FOR PT'S BELONGINGS THE PT IS EXPECTED TO BE D/C'ED TODAY ONCE THE PICC LINE IS REMOVED. WILL CONTINUE TO [id number].
--- NOTE | 2016-11-20 19:31 | NUR ---
PATIENT SITTING UP IN BED, DENIES DISCOMFORT AT THIS TIME, AWAITING FOR DR TO D/C PICC LINE AND COMPLETE DISCHARGE ORDERS, NO OTHER SIGNIFICANT CHANGES NOTED, CARE ENDORSED TO NIGHT NURSE.
[2016-11-20 19:54] VITALS: BP 116/65
--- NOTE | 2016-11-20 19:57 | NUR ---
CALLED DR. NEVAREZ TO ASK IF HE COULD TAKE OUT THE PICC LINE PRIOR TO DISCHARGE. STATED HE IS INSERTING A CENTRAL LINE IN ICU AND WILL COME UP TO D/C IT WHEN AVAILABLE.
--- NOTE | 2016-11-20 20:40 | NUR ---
PAGEGATED DR. NEVAREZ TO SEE IF HE WOULD LIKE TO GIVE 20 UNITS LEVEMIR WITH A GLUCOSE OF 138, DESPITE THE FACT THE PT HAS POOR APPETITE. AWAITING ORDERS.
== END 2016-11-20 21:23 | disposition home or self-care (01) | DRG 313 ==
LOC: ED 20:53 → DU 11-12 05:20 → MU 11-12 05:20 → DU 11-12 08:52 → MU 11-16 15:53
PROVIDERS: Neuromusculoskeletal Medicine, Sports Medicine; Specialist; Student in an Organized Health Care Education/Training Program; ADMIT Family Medicine
PROC: 0S9D3ZX Drainage of Left Knee Joint, Percutaneous Approach, Diagnostic (ICD-10-PCS; 2016-11-12)
PROC: 0S9D3ZZ Drainage of Left Knee Joint, Percutaneous Approach (ICD-10-PCS; 2016-11-13)
PROC: 0S9D00Z Drainage of Left Knee Joint with Drainage Device, Open Approach (ICD-10-PCS; principal; 2016-11-17 13:00)
PROC: 05HC33Z Insertion of Infusion Device into Left Basilic Vein, Percutaneous Approach (ICD-10-PCS; 2016-11-19)
PROC: B54NZZA Ultrasonography of Left Upper Extremity Veins, Guidance (ICD-10-PCS; 2016-11-19)
DX: M00.062 Staphylococcal arthritis, left knee (principal); N17.0 Acute kidney failure with tubular necrosis; E43 Unspecified severe protein-calorie malnutrition; E83.42 Hypomagnesemia; F11.23 Opioid dependence with withdrawal; D63.1 Anemia in chronic kidney disease; B37.49 Other urogenital candidiasis; B95.62 Methicillin resistant Staphylococcus aureus infection as the cause of diseases classified elsewhere; M25.462 Effusion, left knee; I16.0 Hypertensive urgency; Z68.1 Body mass index [BMI] 19.9 or less, adult; Z89.511 Acquired absence of right leg below knee; Z79.82 Long term (current) use of aspirin; Z79.4 Long term (current) use of insulin; Z79.84 Long term (current) use of oral hypoglycemic drugs; Z91.14 Patient's other noncompliance with medication regimen
CPT/HCPCS: 82962; 83880; 84439; C1751; J0360; J0696; J1170; J1450; J1642; J1815; J1885; J2001; J2060; J2250; J2270; J2405; J3010; J3370; J3475; J3490; J7030; Q0092

== ENCOUNTER 2016-12-04 14:14 | Inpatient (IN) | payer MEDICAID ==
[~2016-12-04] VITALS: Ht 182.9 cm; Wt 75.0 kg
[~2016-12-04 14:14] MED LIST changes: +CATAPRES0.1 MG PO; +LEVAQUIN250 M1 PO; +LEVAQUIN750 MG PO; +RIFAMPIN300 MG PO
--- NOTE | 2016-12-04 17:04 | NUR ---
PT WHEELCHAIRED TO HALLWAY 2, AWAITING MSE
--- NOTE | 2016-12-04 17:43 | NUR ---
BALDOMERO COMPLETED BY DR. RAMÍREZ
--- NOTE | 2016-12-04 18:18 | NUR ---
ARTHROCENTESIS PERFORMED BY DR. RAMÍREZ, SPECIMEN COLLECTED AND SENT TO LAB, APPROX 3.5 ML FLUID SENT
--- NOTE | 2016-12-04 18:44 | NUR ---
PER DR. RAMÍREZ, NO BLOOD CULTURES NEEDED BEFORE ORDERED ABX
--- NOTE | 2016-12-04 19:09 | NUR ---
LAB AT BEDSIDE
--- NOTE | 2016-12-04 19:13 | NUR ---
IV SITE INFITLRATED WHILE PUSHING IV MORPHINE AND IV ZOFRAN, LARGE BUMP NOTED TO RIGHT HAND
[2016-12-04 19:15] LABS: SOURCE FLUID SYNOVIAL FLUID
[2016-12-04 19:16] LABS: APPEARANCE FLUID BLOODY; COLOR FLUID RED; RBC FLUID 27700 /cumm; WBC FLUID 2.22 /cumm
[2016-12-04 19:19] LABS: SITE FLUID LEFT
--- NOTE | 2016-12-04 19:20 | NUR ---
PER VERBAL OK BY DR RAMÍREZ AND PT, IV SITE ESTABLISHED TO RIGHT SIDE OF LEFT SIDE OF RIGHT SIDE OF FOREHEAD, 20G, PATENT AND FLUSHED.
[2016-12-04 19:24] LABS: BASOPHIL % 0.3 % (0-2); PLATELET COUNT 341 x10^3mcL (130-400)
[2016-12-04 19:30] LABS: CALCIUM 8.3 mg/dL (8.5-10.1); CREATININE SERUM 2.6 mg/dL (0.7-1.3); POTASSIUM SERUM 3.7 mmol/L (3.5-5.1); RED CELL DISTRIBUTION WIDTH 17.2 % (11.5-14.5)
[2016-12-04 19:33] LABS: BILIRUBIN TOTAL 0.3 mg/dL (0.20-1.00); TOTAL PROTEIN, SERUM 8.2 g/dL (6.4-8.2)
[2016-12-04 19:34] LABS: ALBUMIN 1.8 g/dL (3.4-5.0)
--- NOTE | 2016-12-04 19:36 | NUR ---
DR RAMÍREZ MADE AWARE OF NEW IV ACCESS, DR WILL ORDER NEW MEDS FOR PT DUE TO LAST IV SITE INFILTRATION.
[2016-12-04 20:04] LABS: rbc morphology (normal/abnorm) ABNORMAL (NORMAL)
--- NOTE | 2016-12-04 20:49 | NUR ---
REPORT GIVEN TO CHANTE TO GIVEN REPORT TO RENE TO ASSUME CARE OF PT
[2016-12-04 21:39] LABS: MAGNESIUM 1.4 mg/dL (1.8-2.4); PHOSPHOROUS 3.2 mg/dL (2.5-4.9)
[2016-12-04 21:40] LABS: CHOLESTEROL/HDL RATIO 3.3
[2016-12-04 21:47] LABS: T3 TOTAL 0.8 ng/mL
[2016-12-04 22:07] LABS: FREE T4 1.67 ng/dL (0.76-1.46); FREE THYROXINE INDEX 3.8 ug/dL (1.4-4.5)
[2016-12-05] VITALS (8 sets, daily range): BP systolic 116–179; BP diastolic 69–95; Ht 182.9 cm; Wt 75.0 kg
--- NOTE | 2016-12-05 00:15 | NUR ---
PT HAD 3 EPISODES OF VOMITING, PT GIVEN 4 MG ZOFRAN IVP PER MD ORDERS.
[2016-12-05] MEDS ORDERED: LEVAQUIN750 MG PO (00:24)
[2016-12-05] MEDS ORDERED: RIF300 PO (00:25)
--- NOTE | 2016-12-05 00:40 | NUR ---
REC'D PT FROM ER VIA SARAH. PT IS AAOX4. TELE #17 SR. LUNG SOUNDS CLEAR. NO SOB NOTED. BS ACTIVE X4. PT C/O N/V. DRESSING NOTED TO LATERAL LEFT KNEE, CDI. 1+ EDEMA NOTED TO LLE. PT HAS RIGHT BKA. WHEELCHAIR BOUND. IV NOTED TO RIGHT FOREHEAD. INTACT AND PATENT. ORIENTED PT TO CALL LIGHT. BED IN LOWEST POSITION. WILL ENDORSE TO PRIMARY RN.
--- NOTE | 2016-12-05 01:29 | NUR ---
REC'D REPORT FROM CHANTE DIAZ. PT AAOX4, SPEECH CLEAR, FOLLOWS COMMANDS. NO SIGNS OF DISTRESS NOTED. BREATHING EVEN/UNLABORED ON RA. C/O PAIN TO LLE 8/10. MORPHINE GIVEN PER ORDER. C/O N/V. BROWN EMESIS ~[address] LOPEZ MADE AWARE, ANOTHER DOSE OF ZOFRAN GIVEN PER ORDER. REQUESTING WATER. PER DR. LOPEZ, PT WILL BE NPO AT LEAST UNTIL THE MEDICAL TEAM SEES HIM IN AM. SWELLING TO L KNEE. DRESSING CDI. R BKA. WC BOUND. WC AT BEDSIDE. IV TO L FOREHEAD PATENT AND INFUSING, SITE WNL. ORIENTED TO DEVICES AND SURROUNDINGS. CALL LIGHT WITHIN REACH, BED AT LOWEST POSITION. WILL CONTINUE TO MONITOR.
--- NOTE | 2016-12-05 01:39 | NUR ---
BP 179/88, HR 100. MORPHINE IVP GIVEN FOR PAIN. WILL RECHECK BP IN 15 MIN.
--- NOTE | 2016-12-05 01:58 | NUR ---
BP 147/87, HR 93. MADE AWARE.
--- NOTE | 2016-12-05 02:36 | NUR ---
RECTAL EXAM DONE BY DR. LOPEZ. WITNESSED. PT REPORTS PAIN RELIEF. NO COMPLAINTS AT THIS TIME. WILL CONTINUE TO MONITOR.
--- NOTE | 2016-12-05 05:22 | NUR ---
LAB ATTEMPTING TO DRAW BLOOD. ACCIDENTALLY CAUSED SKIN TEAR WHEN PULLING TAPE OFF SKIN TO LFA. PICTURES TAKEN. ISLAND DRESSING APPLIED. PT REPORTS MILD PAIN TO SKIN TEAR SITE. ALSO REPORTS MILD PAIN TO LLE BUT TOLERABLE. DENIES NAUSEA AT THIS TIME. WILL CONTINUE TO MONITOR.
[2016-12-05 06:36] LABS: BASOPHIL % 0.5 % (0-2); PLATELET COUNT 258 x10^3mcL (130-400)
[2016-12-05 06:41] LABS: CREATININE SERUM 2.1 mg/dL (0.7-1.3); POTASSIUM SERUM 3.6 mmol/L (3.5-5.1)
--- NOTE | 2016-12-05 06:51 | NUR ---
PT RESTING IN BED. NO COMPLAINTS AT THIS TIME. NO SIGNS OF DISTRESS NOTED. SWELLING TO L KNEE. DRESSING IN PLACE. WILL ENDORSE TO DAY NURSE.
--- NOTE | 2016-12-05 07:30 | NUR ---
RECEIVED REPORT FROM DILLON DIAZ.
--- NOTE | 2016-12-05 08:00 | NUR ---
PT IS AOX4. PT IS BREATHING EVEN AND UNLABORED ON ROOM AIR. LUNG SOUNDS ARE CLEAR BILATERALLY. EENT FREE OF DISCHARGE. PT EXPRESSED THAT HE IS FEELING NAUSEOUS. S1 S2 HEART SOUNDS AUSCULTATED. DENIES CP. PULSES ARE MODERATE X4. CAP REFILL < 3 S. SKIN IS WARM AND POWELL. TRACE EDEMA TO LLE. R BKA NOTED. IV TO R FOREHEAD. NS INFUSING @ 127 CC/HR. ABD IS SOFT AND ROUNDED. BOWEL SOUNDS ACTIVE X4Q. PT CLAIMS HE VOIDS FREELY. SKIN TEAR TO RUE. HEALING SURG INCISION W/ STITCHES NOTED TO L KNEE, DRESSING CDI. PT C/O / DULL PAIN TO LLE. HOB ELEVATED, BED LOW, SIDE RAILS UP X2, CALL LIGHT IN REACH. WILL CONTINUE TO MONITOR.
--- NOTE | 2016-12-05 08:18 | NUR ---
MORPHINE 2MG IVP GIVEN FOR 9/10 DULL PAIN TO LLE. ZOFRAN 4MG IVP GIVEN FOR NAUSEA, PT NOTED TO HAVE VOMITTED INTO EMESIS BAG.
--- NOTE | 2016-12-05 11:30 | NUR ---
3 ATTEMPTS MADE TO START PERIPHERAL IV. WAS UNSUCCESSFUL.
--- NOTE | 2016-12-05 12:50 | NUR ---
PT TAKEN TO OR ACCOMPANIED BY OR NURSES.
--- NOTE | 2016-12-05 15:20 | NUR ---
PT RETURNED FROM OR ACCOMPANIED BY OR NURSE. PT TOLERATED PROCEDURE WELL. SURGICAL INCISION MADE TO LLE, DRESSING INTACT AND CDI. NILDA DRAIN TO LLE INTACT AND SECURED, DRAINING SANGUINOUS FLUID. PT DENIES PAIN AT THIS TIME. NO DISTRESS NOTED. ESTIMATED 200 CC OF DRAINAGE REMOVED DURING PROCEDURE, 20 CC OF BLOOD LOSS.
--- NOTE | 2016-12-05 16:00 | NUR ---
3 MORE ATTEMPTS MADE TO START PERIPHERAL IV. UNSUCCESSFUL.
--- NOTE | 2016-12-05 17:50 | NUR ---
ERIC DIAZ SUCCESSFULLY STARTED, 24GA TO R ELBOW. IV INTACT, SECURED, PORTS PATENT, DRESSING CDI.
--- NOTE | 2016-12-05 18:16 | NUR ---
PT IS AOX4. BREATHING EVEN AND UNLABORED ON ROOM AIR, NO DISTRESS NOTED. PT CLAIMS THE PAIN HAS DECREASED SIGNIFICANTLY AFTER HAVING THE PROCEDURE TODAY. R ELBOW IV AND R FOREHEAD IV INTACT, PATENT, DRESSING CDI. NS INFUSING @ 127 CC/HR. PT DENIES NAUSEA AT THIS TIME. PT DENIES PAIN AT THIS TIME. L KNEE DRESSING CDI. L KNEE NILDA DRAIN INTACT, SECURED, DRAINING WELL.
--- NOTE | 2016-12-05 20:00 | NUR ---
RECEIVED PT IN BED. ALERT AND ORIENTED. DENIES HEADACHE/ DIZZINESS. RESP. EVEN AND UNLABORED. ON ROOM AIR AT THIS TIME, SAT. 99%. NO DISTRESS NOTED. AFEBRILE AND VITAL SIGNS STABLE. SR ON THE MONITOR. DENIES CHEST PAIN OR PRESSURE. IVF, NS AT 127ML/HR, INFUSING VIA RT AC, SITE CLEAR. LT KNEE DRESSING DRY AND INTACT. NILDA DRAIN INTACT AND DRAINING SERO-SANG. DRAINAGE.LEG ELEVATED ON PILLOW, ABLE TO WIGGLE TOES AND MOVE ALL EXTS. HS CARE DONE, ABLE TO TURN AND REPOSITION SELF. CALL LIGHT WITHIN REACH. WILL CONTINUE TO MONITOR.
--- NOTE | 2016-12-05 23:10 | NUR ---
PT STATED, THAT HE HAS NO VOIDED SINCE THIS AM, BUT DENIES BLADDER DISTENSION OR ANY DISCOMFORT. URINAL OFFERED AND DR SALGUERO NOTIFIED.WILL CONTINUE TO MONITOR.
--- NOTE | 2016-12-05 23:57 | NUR ---
ULTRASOUND OF URINARY BLADDER ORDERED. WILL CONTINUE TO MONITOR.
--- NOTE | 2016-12-06 00:28 | NUR ---
VOIDED 400MLS OF MIGNON COLOR URINE. HAD ABOUT 100MLS OF BROWNISH COLOR EMESIS. ZOFRAN 2MG IV GIVEN ORDERED. WILL CONTINUE TO MONITOR.
--- NOTE | 2016-12-06 00:33 | NUR ---
URINE SPECIMEN OBTAINED AND SENT TO LAB.
[2016-12-06 06:17] LABS: BASOPHIL % 0.7 % (0-2); PLATELET COUNT 293 x10^3mcL (130-400)
[2016-12-06 06:21] VITALS: BP 122/67
--- NOTE | 2016-12-06 06:27 | NUR ---
AFEBRILE AND VITAL SIGNS STABLE. RESP. EVEN AND UNLABORED. NO DISTRESS NOTED.DENIES PAIN OR ANY DISCOMFORT AT THIS TIME. DUE MEDS GIVEN ORDERED, MARNI. WELL. NEW IV SITE RESTARTED ON RT FORE ARM WITH #24G ANGIO. IVF INTACT AND INFUSING WELL. LT KNEE DRESSING DRY AND INTACT. NILDA DRAIN INTACT AND PATENT. 30MLS DRAINAGE NOTED THIS AM. VOIDING FREELY VIA URINAL.KEPT COMFORTABLE. WILL ENDORSE TO INCOMING NURSE.
[2016-12-06 06:38] LABS: CALCIUM 7.8 mg/dL (8.5-10.1); CARBON DIOXIDE 28.6 mmol/L (21-32); CREATININE SERUM 2.3 mg/dL (0.7-1.3); PHOSPHOROUS 3.8 mg/dL (2.5-4.9); POTASSIUM SERUM 3.7 mmol/L (3.5-5.1)
[2016-12-06 06:40] LABS: RED CELL DISTRIBUTION WIDTH 16.9 % (11.5-14.5)
--- NOTE | 2016-12-06 07:00 | NUR ---
RECEIVED REPORT FROM NOC STEVE DE LA ROSA, ALL QUESTIONS AND CONCERNS ADDRESSED AT THIS TIME. WILL ASSUME ALL CARE.
--- NOTE | 2016-12-06 07:34 | NUR ---
RECEIVED PT LAYING IN BED WITH TRAPEZE PRESENT TO ASSIST WITH MOBILITY. PT REQUESTING CREAM OF WHEAT, EDUCATED PT ON CLEAR LIQUID DIET, WILL FOLLOW UP WITH ADVANCING DIET TOLERATED. PT A&O X 4, CLEAR LUNG SOUNDS AND UNLABORED BREATHING ON RA. PT DENIES CP, DIZZINESS, DYSURIA ANY DISTRESS AT THIS TIME. PT HAS R BKA SKIN INTACT, PT HAS L KNEE WOUND WITH CDI DRESSING, NILDA DRAIN TO SUCTION, SANGUINOUS FLUID PRESENT. PT HAS RFA IV INFUSING, PATENT AND FLUSHING. PT EDUCATED GLUER AND WEDGER LIGHT, BED IN LOWEST POSITION. WILL CONTINUE TO MONITOR PT AT THIS TIME.
--- NOTE | 2016-12-06 08:39 | NUR ---
PT TAKEN OFF TELE AT THIS TIME PER DR ORDER.
--- NOTE | 2016-12-06 09:14 | NUR ---
20G ON FOREHEAD DC'D AT THIS TIME, CATH INTACT. WILL CONTINUE TO MONITOR PT AT THIS TIME.
[2016-12-06 09:48] VITALS: BP 90/55
--- NOTE | 2016-12-06 10:27 | NUR ---
PT SLEEPING AT THIS TIME. VISIBLE CHEST RISE AND FALL NOTED. WILL CONTINUE TO MONITOR PT.
[2016-12-06 12:46] VITALS: BP 90/46
--- NOTE | 2016-12-06 13:03 | NUR ---
PT SITTING IN CHAIR BY THE BEDSIDE, LLE ELEVATED ON CHAIR. PT DENIES ANY CURRENT DISTRESS. WILL CONTINUE TO MONITOR PT AT THIS TIME.
--- NOTE | 2016-12-06 13:40 | NUR ---
PT REQUESTING ANOTHER SOUP HE IS STILL HUNGRY AND DID NOT WANT THE REMAINING FOOD ON MEAL TRAY. SOUP GIVEN TO PT AT THIS TIME.
--- NOTE | 2016-12-06 14:28 | NUR ---
PT BP LOW, MADE AWARE OF LOW BP AND RECOMMEND LOWERING PO BP MEDICATIONS IF NECESSARY. PER JUST HOLD IF CONTINUES TO BE LOW. WILL MAKE ONCOMING NOC SHIFT RN AWARE.
[2016-12-06 17:09] VITALS: BP 92/59
--- NOTE | 2016-12-06 19:53 | NUR ---
RECEIVED PT IN BED AAOX4 PT DENY PAIN , DRESSING TO LEFT KNEE C/D/I NILDA INTACT DRAINING WELL , PIV INTACT INFUSING WELL, WILL CON' TOT MONITOR AND ASSIST PT WITH CARE ,.
[2016-12-06 21:44] VITALS: BP 93/55
--- NOTE | 2016-12-07 05:05 | NUR ---
NOTED PT'S PIV SITE INFILTRATED 24G INSERTED , PT TOLERATED WELL , OLD IV REMOVED ANGIO CATH INTACT . WILL CON'T TO MONITOR PT.
[2016-12-07 06:06] VITALS: BP 116/74
--- NOTE | 2016-12-07 06:34 | NUR ---
NO CHANGES OF CONDITION NOTED , ALL DUE MEDS GIVEN NO REACTION NOTED, PIV INTQACT INFUSING WELL, DRESSING/NILDA INTACT.
--- NOTE | 2016-12-07 08:20 | NUR ---
ENDORSED CARE TO EMILY WHITAKER
[2016-12-07 09:03] LABS: CALCIUM 7.5 mg/dL (8.5-10.1); CARBON DIOXIDE 27.2 mmol/L (21-32); CREATININE SERUM 3.1 mg/dL (0.7-1.3); POTASSIUM SERUM 4.2 mmol/L (3.5-5.1)
[2016-12-07 09:07] LABS: BASOPHIL % 0.7 % (0-2); PLATELET COUNT 293 x10^3mcL (130-400)
--- NOTE | 2016-12-07 09:30 | NUR ---
PT C/O NAUSEA. MEDICATED PER EMAR. PT TOLERATED WELL.
[2016-12-07 09:38] LABS: RED CELL DISTRIBUTION WIDTH 17.4 % (11.5-14.5)
[2016-12-07 10:13] VITALS: BP 132/83
--- NOTE | 2016-12-07 11:05 | NUR ---
20ML SEROUS SANGUINEOUS OUT OF NILDA DRAIN TO LEFT KNEE. +1 EDEMA TO LEFT LOWER EXTREMITY. DENIES PAIN.
--- NOTE | 2016-12-07 12:19 | NUR ---
IV INFILTRATED TO LEFT UPPER ARM. PT HAS NO ACCESS AT MOMENT.
--- NOTE | 2016-12-07 15:50 | NUR ---
IV ACCESS OBTAINED BY CHARGE NURSE. IV TO CHRISTEN #24. IV FLUIDS RESUMED.
[2016-12-07 18:44] VITALS: BP 116/71
--- NOTE | 2016-12-07 18:45 | NUR ---
PT DENIES PAIN. PULSES +1 TO LLE. DENIES ANY PAIN. 20ML OF SEROUS FLUID OUT OF NILDA DRAIN. CALL LIGHT WITHIN REACH.
--- NOTE | 2016-12-07 19:51 | NUR ---
RECEIVED PT IN BED AAOX4 NO ACUTE DISTRESS NOTE , PT DENY PAIN AT THE MOMENT , DRESSING/NILDA TO LEFT KNEE C/D/I , DRANING WELL , PIV TO LEFT UPPER ARM INTACT INFUSING WELL , CALL LGITH WITHIN PT'S REACH WILL CON'T TO MONITOR PT CLOSELY.
[2016-12-07 22:06] VITALS: BP 147/83
[2016-12-08 06:06] VITALS: BP 113/73
[2016-12-08 06:33] LABS: BASOPHIL % 0.8 % (0-2); PLATELET COUNT 399 x10^3mcL (130-400)
[2016-12-08 06:34] LABS: RED CELL DISTRIBUTION WIDTH 17.5 % (11.5-14.5)
--- NOTE | 2016-12-08 06:40 | NUR ---
NO CHANGES OF CONDITION NOTED, ALL DUE MEDS GIVEN NO REACTION NOTED , PIV ITCT INFUSING WELL , DRESSING TO LEFT KNEE C/D/I, NILDA DRAINED 20ML.
[2016-12-08 06:47] LABS: CALCIUM 7.8 mg/dL (8.5-10.1); CARBON DIOXIDE 27.2 mmol/L (21-32); CREATININE SERUM 3.1 mg/dL (0.7-1.3); POTASSIUM SERUM 4.2 mmol/L (3.5-5.1)
[2016-12-08 08:34] VITALS: BP 130/76
--- NOTE | 2016-12-08 09:45 | NUR ---
PT C/O PAIN 8/10 AT LEFT LOWER EXTREMITY WITH NUMBNESS AND TINGLING. MEDICATED PER EMAR PT TOLERATED WELL. PT REPORTS NO PAIN 0/10 TO LOWER EXTREMITIES POST MED ADMINISTRATION. CALL LIGHT WITHIN REACH.
--- NOTE | 2016-12-08 12:30 | NUR ---
3 UNITS OF REGULAR INSULIN GIVEN PER SLIDING SCALE FOR 159 BLOOD GLUCOSE. PT TOLERATED WELL. PASSED NOON MEDICATIONS. 30ML OF SEROUS FLUID OUT OF NILDA DRAIN TO LEFT KNEE. PT DENIES PAIN AT MOMENT. CALL LIGHT WITHIN REACH. FAMILY AT BEDSIDE.
--- NOTE | 2016-12-08 15:51 | NUR ---
PHYSICAL THERAPY DAILY NOTES CO-SIGN All documentation done by the Energy Systems Engineer for 12/08/16 has been reviewed. I agree with the documentation. Reviewed/Co-Signed by: Power Suarez PT Documentation Done by:ADRIAN GOMEZ DIRECTOR OF ACCOUNTING POC REVIEWED W/ DIRECTOR OF ACCOUNTING; PROGRESS MARNI; EMPHASIS ON W/C MGMT, SAFE TRANSFERS, REDUCE RISK OF FALL & SKIN BREAKDOWN; PSYCHOSOCIAL ISSUE; Pt's OWN W/C IN ROOM, NOT IN GOOD CONDITION, WILL BENEFIT W/ W/C FOR HOME USE; H/O HEPA-C.
[2016-12-08 17:50] VITALS: BP 164/91
--- NOTE | 2016-12-08 17:50 | NUR ---
PT REPORTS NAUSEA HAS SUBSIDED POST MEDICATION ADMINISTRATION OF ANTIEMETIC.
--- NOTE | 2016-12-08 18:15 | NUR ---
20ML OF SEROUS FLUID OUT OF NILDA DRAIN TO LEFT KNEE. DENIES PAIN AT MOMENT. IV PATENT TO CHRISTEN. CALL LIGHT WITHIN REACH.
--- NOTE | 2016-12-08 20:00 | NUR ---
PT A/A/O X4. DENIES DIZZINESS AND HEADACHE. BREATH SOUNDS CLEAR. BREATHING EVEN AND UNLABORED ON ROOM AIR. DENIES CHEST PAIN AND PRESSURE. BOWEL SOUNDS ACTIVE. NO C/O N/V AND ABD PAIN. RIGHT BKA NOTED. DRESSING ON THE LEFT KNEE NOTED C/D/I. WITH NILDA DRAIN EMPTY. IV INTACT ON THE RIGHT UPPER INFUSING WITH NS AT 127 ML/HR. MADE PT COMFORTABLE. PLACED CALL LIGHT WITH IN REACH. WILL CONTINUE TO MONITOR.
[2016-12-08 21:32] VITALS: BP 178/95
--- NOTE | 2016-12-09 00:01 | NUR ---
PT BLOOD PRESSURE 192/104. DR. SALGUERO NOTIFIED. GAVE PT LABETALOL IVP AND LISINOPRIL PO. PT TOLERATED IT WELL. WILL CONTINUE TO MONITOR.
--- NOTE | 2016-12-09 00:42 | NUR ---
BLOOD PRESSURE 124/74 HR 81, SPO2 96%. DR. SALGUERO AWARE. WILL CONTINUE TO MONITOR.
[2016-12-09 00:43] VITALS: BP 124/74
--- NOTE | 2016-12-09 02:01 | NUR ---
PT WAS THROWING UP. WAS GIVEN ZOFRAN IVP BY PATT DIAZ. WILL CONTINUE TO MONITOR.
--- NOTE | 2016-12-09 02:30 | NUR ---
PT STILL THROWING UP. PT STATED "I FEEL LIKE HELL. IM STILL THROWING UP. I THINK IM WITHDRAWING.". DR. SALGUERO AWARE. WILL CONTINUE TO MONITOR.
--- NOTE | 2016-12-09 05:32 | NUR ---
PT CONTINUES TO HAVE NAUSEA. PT STATED "I WANT SOMETHING FOR THE WITHDRAWAL. LIKE DILAUDID OR SOMETHING.". PT OFFERED PRN MEDICATION MORPHINE IF IN PAIN. PT STATED "MORPHINE DOESNT DO IT FOR ME.". DR. SALGUERO AWARE. IV INTACT AND INFUSING ORDERED. WILL ENDORSE TO THE AM NURSE ACCORDINGLY.
--- NOTE | 2016-12-09 05:55 | NUR ---
PT DRESSING C/D/I. EMPTIED 20 ML OF PEACH COLORED FLUID FROM THE NILDA DRAIN. IV INTACT AND INFUSING ORDERED. WILL CONTINUE TO MONITOR.
--- NOTE | 2016-12-09 06:16 | NUR ---
PT C/O PAIN. GAVE PT MORPHINE IVP. PT TOLERATED IT WELL. WILL ENDORSE TO THE AM NURSE ACCORDINGLY.
[2016-12-09 06:18] VITALS: BP 128/92
--- NOTE | 2016-12-09 07:40 | NUR ---
RC'D A/A/O/X4, SPEECH CLEAR AND APPROPRIATE. ON TELE 10 WITH SR. DENIES CHEST PAIN/PRESSURE. PALP PULSES. NOTED EDEMA ON LLE. RESPIRATIONS EQUAL AND UNLABORED BILAT. LUNGS CLEAR TO AUSCULTATION. ON RA WITH 97%. ABDOMEN SOFT AND NONTENDER. PT REPORTED CONTINOUS VOMITING IN THE EARLY AM. VOIDS FREELY, DENIES BURNING. RBKA NOTED. TRAPEZE PRESENT. WC PRESENT AT BEDSIDE. LLE SERGEI BANDAGE NOTED CDI WITH NILDA DRAIN IN PLACE. CHRISTEN IV RUNNING NS AT 127ML/HR, WNL. PT IS CALM AND COOPERATIVE. BED IN LOW POSITION. EDUCATED ON USING CALL LIGHT WHEN NEEDING ASSISTANCE OUT OF BED. CALL LIGHT IN REACH.
--- NOTE | 2016-12-09 09:17 | NUR ---
PT COMPLAINING OF PAIN 11/20 ON LLE. MEDICATED WITH MORPHINE IVP PRN PER MED REC. WILL CONTINUE TO MONITOR.
[2016-12-09 10:01] VITALS: BP 182/94
--- NOTE | 2016-12-09 10:14 | NUR ---
UNABLE TO GIVE MORNING MEDS DUE TO PT VOMITING CONTINOUSLY. DR REGALADO NOTIFIED AND MADE AWARE. BP CURRENTLY 182/94, HR 99. AWARE. AWAITING NEW ORDERS AT THIS TIME
--- NOTE | 2016-12-09 11:16 | NUR ---
PT'S BP 199/118, HR 106. NOTIFIED AND MADE AWARE. MEDICATED WITH HYDRALAZINE IVP PRN PER MED. NOTIFIED TELE MONITOR FOR PRE/POST STRIPS. WILL CONTINUE TO MONITOR.
--- NOTE | 2016-12-09 11:28 | NUR ---
PT COMPLAINING OF CONTINOUS VOMITING. REPORTED NO RELIEF FROM ZOFRAN ADMINISTERED IN THE RECOATER. DR. REGALADO NOTIFIED AND MADE AWARE. MEDICATED WITH PHENERGAN IVP PRN PER MED REC. WILL CONTINUE TO MONITOR.
[2016-12-09 12:45] VITALS: BP 175/93
--- NOTE | 2016-12-09 13:05 | NUR ---
*PT NOTES* SPOKE TO RN AT 1120, RN REQUESTED TO HOLD PT TX DUE TO ELEVATED BP, NUSEA, AND VOMITING. RN SEEN AT 1240, AND STATED TO CONTINUE TO HOLD PT TX FOR THE REMAINDER OF THE DAY DUE TO AFORMENTIONED Pt CONDITION. CLINICAL INSTURCTOR PRESENT DURING CONSULT.
--- NOTE | 2016-12-09 14:49 | NUR ---
Initial Nutrition Assessment-Basim Diaz 234T-B Dx: septic left knee PMHx: DM, HTN, HLD PSHx:Right leg BKA Labs: (12/08)B, BUN:25H, Cr:3.1H, Ca:7.8L, H/H:8.3/27L (12/04) A1c:6.9H, WBC:13.6H Meds: Colace, D50, Ferrlecit, Glucotrol, Humulin, Lactinex, NS, Theragran, Vit C, Zofran, Heparin, Diet:CCHO PO Intake: (12/06) B:10% L:100% (12/08) B:100% Ht: 72in, 6ft Wt: 165#,74.84kg BMI:22.4kg/m2 (normal weight) IBW: with BKA 167#,76kg %IBW: 104% UBW:160-165# per pt. Age:51y/o male Food Allergies:None Skin: evan wrap present of LLE with NILDA drain. Jonathan:18 Edema:on LLE GI:active bowel sounds Last BM:12/03 Pt admitted with severe sepsis with left septic knee. Pt had join fluid removed November 13, which demenstrated staph aureus, per H&P. Per progress note 12/08, pt is POD#3 I&D of left knee by Dr. Cm. Pt continues to receive IV antibiotics which he will need for 3eks. Pt's Hgb has improved;8.3 and is asymptomatic. Pt denies any knee pain and is able to ambulate to bed from whellchair. Pt did have an episode of vomiting but tolerating food otherwise. During visit, pt reported emesis x6 today. Problem with: N: Yes V:Yes, emesisx6 today per pt D: No C:No Problems with: Chewing:No Swallowing:No Current appetite: Good Recent wt change:No %wt change:0% Vitamin/Supplement use:No Special diet at home:No, pt states he eats what he wants. Physical activity:No Education: Pt declined education and declined education from previous admit. Estimated Nutritional Needs Based on ideal body weight 76 kg Energy: 1900-2280kcal/d (25-30kcal/kg for sepsis) Protein: 76-91 g/d (1-1.2g/kg for sepsis) Fluid:1900-2280ml/d (1 ml/kcal) or per doctor Nutrition Diagnosis 1. Altered nutrition labs endocrine dysfunction as evidenced by B and A1c:6.9. 2. Increased nutrient needs related to increased metabolic demands as evidenced by pt with elevated WBC:13.6, HR: 99 and Cr:2.6 at admit and pt diagnosed with severe sepsis with left knee septic arthritis. Intervention 1.Recommend CL or NPO due to pt with emesis x6 today. Monitor/Evaluate Goal: PO intake at least 75% of estimated needs, no emesis Monitor: PO intake, Labs, GI function F/U in 3-5days as moderate risk:12/12-3
[2016-12-09 17:36] VITALS: BP 119/80
--- NOTE | 2016-12-09 17:50 | NUR ---
PT RESTING IN BED WITH NO APPARENT SIGNS OF DISTRESS. RESPIRATIONS EQUAL AND UNLABORED BILAT. ON RA WITH 98%. DENIES PAIN/SOB AT THIS TIME. CHRISTEN IV RUNNING NS AT 127ML/HR, WNL. PT REPORTS DECREASED VOMITING SINCE AM. CALL LIGHT IN REACH. BED IN LOW POSITION.
--- NOTE | 2016-12-09 20:00 | NUR ---
PT A/A/O X4. DENIES DIZZINESS AND HEADACHE. BREATH SOUNDS CLEAR. BREATHING EVEN AND UNLABORED ON ROOM AIR. DENIES CHEST PAIN AND PRESSURE. BOWEL SOUNDS ACTIVE. NO C/O ABD PAIN. C/O NAUSEA. DRESSING ON THE LEFT KNEE NOTED C/D/I WITH NILDA DRAIN EMPTY. IV INTACT ON THE RIGHT UPPER ARM INFUSING WITH NS AT 127 ML/HR. MADE PT COMFORTABLE. PLACED CALL LIGHT WITH IN REACH. WILL CONTINUE TO MONITOR.
--- NOTE | 2016-12-09 20:35 | NUR ---
CONTRABAND FOUND IN PATIENTS ROOM ON PATIENTS TABLE. PT ADMITTED THAT IT BELONGS TO HIM AND STATED THAT HE IS ABOUT TO USE IT. CUT UP FOILS AND CRYSTAL SUBSTANCE FOUND ON THE TABLE, ALONG WITH LAMINATOR PREFORMS, JUICE STRAW, TEASPOON, CRUMPLED FOILS. PT STATED THE LAST TIME HE USED IT WAS LAST NIGHT. DR. SALGUERO MADE AWARE AND TALKED TO PATIENT. SECURITY OFFCIER ELLYN CERVANTES MADE AWARE AND PT MADE AWARE THAT WE NEED TO CHECK HIS BAGS/BELONGINGS AND PT COOPERATIVE AND SERCURITY CHECKED PATIENTS BELONGINGS. NO OTHER CONTRABAND FOUND, ONLY PTS OWN ROUTINE PRESCRIPTION MEDS. LAW SECRETARY MADE AWARE. ELIANA PEREZ NOTIFIED AND SPOKEN WITH DISPATCHER REJI AND WILL SEND FINE ARTIST HERE. DR. SALGUERO IN PATIENTS ROOM AND AWARE FINE ARTIST WILL BE COMING. PT RESTING IN BED AT THIS TIME.
--- NOTE | 2016-12-09 20:46 | NUR ---
CHANTERN FOUND PT SITTING ON THE EDGE OF THE BED WITH CONTRABAND, FOIL, STRAW AND FRONT COUNTER CLERK ON LAP. PT ATTEMPTED TO HIDE CONTRABAND IN DRAWER OF PT'S TABLE. CHARGE NURSE AND DR SALGUERO MADE AWARE.
--- NOTE | 2016-12-09 21:20 | NUR ---
PT C/O NAUSEA AND VOMITED BROWN FLUID. GAVE PT PHENERGAN IVP. PT TOLERATED IT WELL. WILL CONTINUE TO MONITOR.
--- NOTE | 2016-12-09 21:35 | NUR ---
PT C/O PAIN. GAVE PT MORPHINE IVP. PT TOLERATED IT WELL. WILL CONTINUE TO MONITOR.
--- NOTE | 2016-12-09 21:40 | NUR ---
POLICE OFFCER MAULIK IN PATIENTS ROOM. TALKED TO PATIENT AND TOOK CONTRABAND WITH THEM. DR. SALGUERO IN ROOM. POLICE REPORT #[phone]. PT COOPERATIVE WITH THE OFFICERS.
--- NOTE | 2016-12-09 21:42 | NUR ---
ELIANA POLICE CAME BY AND WENT TO THE PATIENTS BEDSIDE. POLICE ASK PT SOME QUESTIONS AND CONFISCATED THE CONTRABAND ON THE TABLE. WILL CONTINUE TO MONITOR.
[2016-12-09 21:44] VITALS: BP 159/86
--- NOTE | 2016-12-10 01:45 | NUR ---
PT C/O IV SITE HURTING. IV INFILTRATED. GREGORY RN, DANIELLE RN AND ER NURSE ATTEMPTED TO PUT A NEW IV AND WAS NOT ABLE TO PUT IT. DR. SALGUERO AWARE. WILL CONTINUE TO MONITOR.
[2016-12-10 05:28] VITALS: BP 172/97
--- NOTE | 2016-12-10 05:40 | NUR ---
PT RESTING WITH EYES CLOSED. EASILY AROUSABLE WITH VERBAL STIMULI. NO C/O PAIN THUS FAR. DRESSING ON THE LEFT KNEE WITH NILDA DRAIN C/D/I. 15 ML OF PEACH COLORED FLUID OUT. WILL ENDORSE TO THE AM NURSE ACCORDINGLY.
--- NOTE | 2016-12-10 07:42 | NUR ---
PT IS A+OX3, MEDSURG PT, LLE WEAK PULSE, +1 EDEMA LLE, LUNG SOUNDS CLEAR, COMPLAINING OF NAUSEA, VOIDING, WHEECLAHIR AT BEDSIDE, TRAPEZE, SERGEI WRAP AND NILDA DRAIN ON L KNEE, CDI, PER NIGHT NURSE NO JOSE ACCESS AVAILABLE, 10 IV ATTEMPTS MADE, PT REFUSING IV ACCESS IN HEAD.
[2016-12-10 08:42] VITALS: BP 182/87
--- NOTE | 2016-12-10 09:22 | NUR ---
PT VOMITING IN EMESIS BAG IN BED, NO RESPIRATORY DISTRESS NOTED. NURSE ASKED PT IF SHE COULD ATTEMPT IV ACCESS AND PT REFUSED. PT STATES HE WOULD LIKE A PICC LINE.
--- NOTE | 2016-12-10 09:54 | NUR ---
DR BETTS NOTIFIED THAT PT REFUSING IV ACCESS AND REQUESTING PICC LINE.
--- NOTE | 2016-12-10 11:33 | NUR ---
PT RESTING IN BED, NO RESPIRATORY DISTRESS NOTED, COMPLAINING OF NAUSEA, REFUSING BED LINEN CHANGE AND GOWN CHANGE, CONTINUES TO REFUSE IV ACCESS AND REQUESTING PICC LINE.
--- NOTE | 2016-12-10 12:31 | NUR ---
CENTRAL CONTINUOUS MINER KIT PLACED AT BEDSIDE FOR DR BROWN PT RESTING IN BED, VOMITING, NO RESPIRATORY DISTRESS NOTED.
--- NOTE | 2016-12-10 12:50 | NUR ---
ATIVAN AND DILAUDID ORDERED PRE CENTRAL LINE PROCEDURE BUT PT HAS NO JOSE ACCESS.
--- NOTE | 2016-12-10 13:17 | NUR ---
WITNESSED PT SIGN CONSENT FOR CENTRAL LINE PLACEMENT.
--- NOTE | 2016-12-10 13:33 | NUR ---
NORCO GIVEN TO HELP PT WITH CENTRAL LINE PLACEMENT PAIN. DR BETTS AND [employer] ARCHITECT IN ROOM TO PERFORM CENTRAL LINE PLACEMENT.
--- NOTE | 2016-12-10 14:12 | NUR ---
DR BETTS AND [facility] STILL IN ROOM PERFORMING CENTRAL LINE PLACEMENT.
--- NOTE | 2016-12-10 15:11 | NUR ---
P.T. NOTES Pt WAS SEEN AWAKE & ALERT IN BED, OWN W/C IN ROOM, DECLINED P.T. TX TODAY, STATES HE HAS BEEN NAUSEOUS & HAS BEEN VOMITTING, DECLINED BEDSIDE EXER, EXPLAINED RISKS & BENEFITS OF THERAPY, Pt STILL DECLINED, CALL LIEBERMAN, PHONE, TABLE IN REACH, BED ALARM ON; APPRECIATIVE; OHT IN PLACE; NURSE AWARE; RETURNED IN AFTERNN, Pt HAS BEDSIDE HOSPITAL PROCEDURE; HOLD P.T. TX TODAY; FOLLOW UP TOMORROW. ADAN
[2016-12-10 15:24] VITALS: BP 175/89
--- NOTE | 2016-12-10 16:00 | NUR ---
PT PLACED BACK ON TELE PER HTN.
--- NOTE | 2016-12-10 16:14 | NUR ---
PT RESTING IN BED, PLACED ON TELE 4, NSR, HR 70, PHENERGAN GIVEN FOR NAUSEA, TYLENOL GIVEN FOR TEMP 9.9, HYDRALAZINE GIVEN FOR BP 175/89. ALL CENTRAL LINE PORTS FLUSHED IN RIJ, PATENT.
[2016-12-10 16:45] VITALS: BP 109/59
--- NOTE | 2016-12-10 16:49 | NUR ---
PT SITTING IN CHAIR AT BEDSIDE, COMPLAINING OF ANXIETY AND NAUSEA, NO RESPIRATORY DISTRESS NOTED. INSTRUCTED TO USE CALL LIGHT TO GILDA FOR HELP WHEN HE IS READY TO GET BACK IN BED AND NOT TO GET UP BY HIMSELF.
--- NOTE | 2016-12-10 18:45 | NUR ---
PT RESTING IN BED, NO RESPIRATORY DISTRESS NOTED, COMPLAINING OF SEVERE APIN, MORPHINE GIVEN, DICK WASH PERFORMED, ICE PACK PLACED ON PT FOREHEAD FOR TEMP.
--- NOTE | 2016-12-10 20:00 | NUR ---
RECEIVED PT IN BED,ALERT AND ORIENTED. DOOZING OFF AND ON. RESP. EVEN AND UNLABORED,ON ROOM AIR, NO DISTRESS NOTED. SR ON THE MONITOR, DENIES CHEST PAIN OR ANY DISCOMFORT AT THIS TIME.LT KNEE DRESSING DRY AND INTACT. NILDA DRAIN INTACT AND DRAINING SERO-SANG.DRAINAGE. LEG ELEVATED ON PILLOW, ABLE TO MOVE EXT. WITH RT BKA, ABLE TO TURN AND REPOSITION SELF IN BED. IVF, NS AT 127ML/HR, INTACT AND INFUSING VIA RIJ TRIPLE LUMEN. SITE DRESSING DRY AND INTACT. ALL PORTS PATENT.ASSISTED WITH HS CARE. CALL LIGHT WITHIN REACH. WILL CONTINUE TO MONITOR.
[2016-12-10 21:41] VITALS: BP 172/84
--- NOTE | 2016-12-10 23:37 | NUR ---
EYES CLOSED. APPEARS ASLEEP, EASILY AROUSABLE. RESP.EVEN AND UNLABOTED. NO DISTRESS NOTED. WILL CONTINUE TO MONITOR.
[2016-12-11 05:36] VITALS: BP 145/67
--- NOTE | 2016-12-11 06:40 | NUR ---
AFEBRILE AND VITAL SIGNS STABLE. RESP. EVEN AND UNLABORED. NO DISTRESS NOTED. DUE MEDS GIVEN ORDERED, MARNI. WELL. IVF INTACT AND INFUSING VIA RIJ TRIPLE LUMEN. SITE DRESSING DRY AND INTACT. LT KNEE DRESSING DRY AND INTACT. NLIDA INTACT AND PATENT. 5MLS SERO-SANG. DRAINAGE NOTED. KEPT COMFORTABLE.LT LEG ELEVATED. NO COMPLAINTS NOTED. WILL ENDORSE TO INCOMING NURSE.
--- NOTE | 2016-12-11 06:51 | NUR ---
TOTAL NILDA DRAINAGE OUTPUT 15MLS.
--- NOTE | 2016-12-11 07:15 | NUR ---
PT WAS ENDORSE TO ME THIS MORNING. A/O X4 SITTING UP IN BED. BREATHING EVEN AND UNLABORED ON RA, NO RESP DISTRESS NOTED. TELE 4 NSR, DENIES CHEST PAIN OR DISCOMFORT AT THIS TIME. LEFT KNEE DRESSING DRY AND INTACT. NILDA DRAIN INTACT AND DRAINING SERO/SANG. LEFT LEG ELEVATED ON PILLOW AND IS ABLE TO MOVE EXT. RIGHT BKA AND ABLE TO TRANSFER HIMSELF FROM BED TO WHEEL CHAIR. IV TO RIJ AT 127 ML/HR. INTACT AND INFUSING. SITE DRESSING DRY AND INTACT AND ALL PORTS ARE PATENT. CALL LIGHT IN REACH IN LOW IN LOW POSITION.
--- NOTE | 2016-12-11 09:05 | NUR ---
PT C/O N/V. MEDICATED WITH PHENERGEN. WILL CONTINUE TO MONITOR PT.
[2016-12-11 10:00] VITALS: BP 148/77
--- NOTE | 2016-12-11 10:31 | NUR ---
PT IS VOMITING. MEDICATED PT WITH ZOFRAN.
--- NOTE | 2016-12-11 13:14 | NUR ---
PT C/O N/V WILL MEDICATED WITH PHENERGEN.
--- NOTE | 2016-12-11 13:39 | NUR ---
PT IS C/O PAIN 9/10 ALL OVER BODY. WILL MEDICATED WITH MORPHINE.
--- NOTE | 2016-12-11 15:27 | NUR ---
PT NOTES 1200 PATIENT REFUSED PT TX D/T BEING NAUSEATED AND NOT FEELING WELL, EDUCATED ON BENEFITS OF MOBILITY AND CONSEQUENCES OF IMMOBILITY, BUT CONT TO REFUSE. NURSING AWARE.
--- NOTE | 2016-12-11 16:00 | NUR ---
PT IS SLEEPING VERY COMFORTABLE. NO RESP DISTRESS , CHEST PAIN OR DISCOMFORT NOTED. CALL LIGHT IN REACH. BED IN LOW POSITION. WILL CONTINUE TO MONITOR PT DISCOMFORT AND NV.
[2016-12-11 17:20] VITALS: BP 148/86
--- NOTE | 2016-12-11 18:57 | NUR ---
PT IS SITTING UP IN BED WATCHING TV. PT IS A/O X4. DENIES ANY CHEST PAIN OR N/V AT THIS TIME. PT IS BREATHING EVEN AND UNLABORED ON RA. TELE 4 NSR. DRAINED 15 ML FROM THE NILDA DRAIN TO THE L KNEE. IV TO THE RIJ INFUSING AT 127ML/HR. ALL THREE PORTS ARE INFUSING AND PATENT. CALL LIGHT IN REACH, BED IN LOW POSITION. WILL ENDORSE PT TO INCOMING NURSE.
[2016-12-11 19:06] VITALS: BP 118/65
--- NOTE | 2016-12-11 19:20 | NUR ---
PT RECIEVED AWAKE ALERT AND LYING IN THE BED RESTING,REG RESP NO SOB,IV INFUSING WEL WITH THE PATENT AND INTACT,PT HAS A DRESSING TO THE LT KNEE WHICH IS CDI AND HAS J/P TO GRAVITY DRIAN WHICH IS SERAGUIOUS IN NATURE.PT HAS RT LEG BKA WITH THE STUMP INTACT.PT ON TELE MONITOR AND IN NSR NO ECTOPY OR CHEST PAIN AT THIS TIME,KEPT CLEAN AND DRY TO TOUCH,CALL LIGHT MADE CLOSE TO THE PATIENT AND WILL CONTINUE TO MONITOR.
[2016-12-11 20:43] VITALS: BP 141/80
[2016-12-12 05:07] VITALS: BP 115/74
--- NOTE | 2016-12-12 06:18 | NUR ---
PT HAD A RESTING NIGHT V/S STABLE,NO CHANGE IN CONDITION AND WILL CONTINUE TO MONITOR.
--- NOTE | 2016-12-12 07:20 | NUR ---
RESTING IN BED, AROUSABLE TO LIGHT NOISE, ABLE TO VERBALIZE NEEDS WITH CLEAR AND COHERENT SPEECH, REPORTS LLE PAIN 2/10, CONTROLLED AT THIS LEVEL, KNEE WITH ACEWRAP, NILDA DRAIN W/ SCANT AMOUNT OF SEROUSANG DRAINAGE IN BULB,RBKA ABLE TO TRANSFER SELF TO WHEELCHAIR AND BED, PHYS THERAPY ON THE CASE, ON TELE #4 NSR ON THE MONITOR, DENIES ANY HEART RELATED PAIN OR DISCOMFORT, REORIENTED TO CALL LIGHT AND FALL RISK PROTOCOL, WILL CONTINUE TO PROVIDE CARE.
[2016-12-12 08:45] VITALS: BP 102/58
--- NOTE | 2016-12-12 10:51 | NUR ---
ABLE TO TAKE ALL PO MEDS WITHOUT GI DISTRESS, ASSISTED TO POSITION OF COMFORT, 15ML OF SEROUS FLUID REMOVED FROM NILDA BULB, DRESSING IS DRY. PHYSICAL THERAPY WILL BE WORKING WITH PATIENT.
--- NOTE | 2016-12-12 11:17 | NUR ---
PT REPORTS NAUSEA, ANTIEMETIC GIVEN ORDERED, CALL LIGHT WITHIN REACH, WILL CONTINUE TO PROVIDE CARE.
[2016-12-12 12:20] VITALS: BP 119/71
--- NOTE | 2016-12-12 12:20 | NUR ---
Follow-up Nutrition Assessment Dx:Septic left knee Labs: (12/08) BH, BUN:25H, Cr:3.1H, Ca:7.8L, H/H:8.3/27L Meds: Coalce, Ferrlecit, Glucotrol, Humulin, Lactinex, Phenegan, NS, Thergran, Vit C, Heparin Diet: CCHO, Full liquid PO intake: (12/09) B:, L, D:pt refused meal, (12/10) B:0% L:60% Weights: (12/04) 165#, 74.84kg (12/05)165#, 74.84kg (12/12) Skin: Pio wrap to left knee with NILDA drain in place. BKA (2011) Edema: +1 LLELast BM: 12/09 Per progress note 12/12, pt with severe sepsis with L knee septic arthritis s/p POD #6 incision and drainage of left knee by Dr. Reyes and intractable vomiting 2/2 Heroin withdrawal. Patient noted to use contraband in the hospital premises. animal control officer Kary talked to patient and took contraband with them.Per bed huddle yesterday morning, pt has restricted insurance so he will be staying and will be receiving 2wks of antibiotics. During visit, observed pt laying in bed. Pt no longer with N/V. Pt reports to being hungry and wanting to have mashed potatoes for lunch. RD explained to the pt that he is still on a full liquid diet and if he continunes to tolerate it, the doctor will most likely advcance diet to [facility]. Estimated Nutritional Needs unchanged from prior assessment:76kg Energy: 1900-58422apax/day (25-30kcal/kg for sepsis) Protein: 76-91g/day (1-1.2g/kg for sepsis) Fluid: 1900-2280ml/day (1ml/kcal) or per doctor Nutrition Diagnosis 1. Altered nutrition labs related to endocrine dysfunction as evidenced by B and A1c:6.9 (ongoing) 2. Increased nutrient needs related to increased metabolic demands as evidenced by pt with elevated WBC:13.6, HR:99 and Cr:2.6 at admit and pt diagnosed with severe sepsis with septic left knee. WBC:WNL Cr:3.1H Intervention 3. Recommend advance diet as tolerated to CCHO. Monitor/Evaluate Goal: PO intake at least 75% of estimated needs Monitor: PO intake, Labs, GI function F/U in 7 days as low risk:12/19
--- NOTE | 2016-12-12 12:21 | NUR ---
Recommend advance diet as tolerated to CCHO.
[2016-12-12 16:30] VITALS: BP 127/74
--- NOTE | 2016-12-12 18:06 | NUR ---
ABLE TO TRANSFER SELF FROM BED TO WHEELCHAIR WITHOUT ASSIST, LEFT KNEE WITH ACEWRAP, 50ML OF SEROUS FLUID REMOVED FROM NILDA DRAIN BULB, TOLERATED ALL MEALS WITHOUT GI DISTRESS, NO OTHER SIGNIFICANT CHANGES NOTED, CARE WILL BE ENDORSED TO NIGHT NURSE.
--- NOTE | 2016-12-12 19:46 | NUR ---
SHIFT REASSESSMENT DONE.PATIENT ALERT AND ORIENTED.MAKE NEEDS KNOWN.BREATHING EASY.BED TO WHEELCHAIR,ASSIST,PARUL 2011.NS AT 127 CC/ HOUR RIJ 3 LUMEN INSERTED 12/10 IV DRUG USER,HAER STICK PERRIPHERAL LINE.NO ATB ANYMORE PER REPORT.MEDSURG PATIENT.SERGEI WRAP ON L KNEE WITH NILDA,SEROUS OUTOUT,10 CC DAY SHIFT.EDEMA LLE,ON HEPARIN SQ.CALL LIGHT IN REACH.
[2016-12-12 20:45] VITALS: BP 143/83
--- NOTE | 2016-12-12 21:30 | NUR ---
MEDS GIVEN,SWALLOWS WELL.VISITORS EARLIERNS AT 127 CC/ HOUR.IV SITE RIJ/TRIPLE LUMEN.
--- NOTE | 2016-12-13 01:59 | NUR ---
CHECKED AT INTERVALS FOR NEEDS AND SAFETY.CALL LIGHT IN REACH.
[2016-12-13 05:28] VITALS: BP 100/61
--- NOTE | 2016-12-13 06:11 | NUR ---
BREANNE LAKHANI WITH 40 CC OUT SEROUS DRAINAGE.PATIENT NS AT 127 CC/ HOUR.R JUGULAR TRIPLE LUMEN INTACT.WILL ENDORSE TO INCOMING SHIFT.CALL LIGHT IN REACH.
--- NOTE | 2016-12-13 07:10 | NUR ---
AAOX4 ABLE TO VERBALIZE NEEDS WITH CLEAR AND COHERENT SPEECH, LEFT KNEE W/SERGEI WRAP, NILDA DRAINING SEROUS FLUID, SCANT AMOUNT NOTED IN NILDA BULB, REPORTS PAIN 2/10, DENIES GI DISTRESS, CALL LIGHT WITHIN REACH, WILL CONTINUE TO PROVIDE CARE.
[2016-12-13 09:16] VITALS: BP 109/66
--- NOTE | 2016-12-13 13:02 | NUR ---
C/O HEART BURN, N&V, EMESIS W/ PHLEGM AND FOOD PARTICLES 250ML, ADMINSTERED ANTIEMETIC, DR TORO MADE AWARE, ASSISTED WITH ORAL HYGIENE, CALL LIGHT WITHIN REACH.
--- NOTE | 2016-12-13 15:14 | NUR ---
CONTINUES TO FEEL NAUSEUS, HAD 200ML OF EMESIS, WITH FOOD PARTICLES, WILL PROVIDE DOSE OF ANTIEMETIC, CALL LIGHT WITHIN REACH.
[2016-12-13 17:24] VITALS: BP 100/64
--- NOTE | 2016-12-13 19:25 | NUR ---
SITTIN UP IN BED, DENIES N&V AT THIS TIME, LLE PAIN 2/10, CONTROLLED AT THIS TIME, NILDA DRAIN W/ SCANT AMOUNT OF SEROUS FLUID IN BULB, IV ABX TX CONTINUED, NO OTHER SIGNIFICANT CHANGES NOTED, CARE ENDORSED TO NIGHT NURSE.
--- NOTE | 2016-12-13 19:35 | NUR ---
PT IS A/O X4, VERBAL RESPONSIVE, ABLE TO TELL WHAT HE NEEDS. LUNG SOUND CLEAR BILATERAL, NO COUGH, NO SOB, PT DENY ANY CHEST PAIN OR DISCOMFORT, BOWEL SOUND PRESENT BILATERAL, NO COUGH, NO SOB, BOWEL SOUND PRESENT ALL 4 QUADRANTS, NO DISTENTION, NO TENDER. DENY ANY N/V AT THIS TIME, PT HAS RIGHT BKA, +1 EDEMA ON LLE, DRESSING AT LEFT KNEE IS INTACT, NILDA DRAINAGE IS INTACT, SEROSANGUINEOUS COLOR, PT DENY ANY PAIN OR DISCOMFORT AT THIS MOMENT, CENTRAL LINE AT RIGHT IJ, DRESSING INTACT, NO LEAKING, NO INFILTRATION. ALL ADLS ASSIST, ALL NEED MET, CALL LIGHT IN REACH, WILL CONTINUE TO MONITOR.
--- NOTE | 2016-12-13 21:15 | NUR ---
PT C/O HEART BURN, REPORT TO DR. BÁRBARA MADE AWARE, WAITING FOR NEW ORDER.
[2016-12-13 21:35] VITALS: BP 150/79
--- NOTE | 2016-12-14 05:03 | NUR ---
PT IS AWAKE, VERBAL RESPONSIVE, DENY ANY RESPIRATORY DISTRESS, DENY ANY PAIN OR DISCOMFORT, CENTRAL LINE AT RIGHT IJ, DRESSING INTACT, NO LEAKING, NO INFILTRATION. NILDA IS INTACT AT LEFT KNEE, ALL ADLS ASSIST, ALL NEED MET, CALL LIGHT IN REACH, WILL CONTINUE TO MONITOR.
[2016-12-14 05:24] VITALS: BP 99/52
--- NOTE | 2016-12-14 07:10 | NUR ---
RESTING IN BED, AROUSABLE TO LIGHT NOISE, DENIES N&V, LLE PAIN 05/23, NILDA DRAIN W/ SCANT AMOUNT SEROUS FLUID IN BULB, DRESSING DRY, CENTRAL LINE AT [facility], PATENT, INFUSING NS AT 127ML/HR, CALL LIGHT WITHIN REACH, WILL CONTINUE TO PROVIDE CARE.
--- NOTE | 2016-12-14 09:10 | NUR ---
ABLE TO TOLERATE AM PO MEDS WITHOUT GI DISTRESS, CALL LIGHT WITHIN REACH, WILL CONTINUE TO PROVIDE CARE.
[2016-12-14 09:27] VITALS: BP 127/61
--- NOTE | 2016-12-14 14:45 | NUR ---
DR FLORES AT NURSES' STATION, HE "WILL BE REMOVING NILDA DRAIN IN A COUPLE OF DAYS"
[2016-12-14 17:22] VITALS: BP 129/75
--- NOTE | 2016-12-14 17:24 | NUR ---
C/O NAUSEA, HAD VOMIT EPISODE WITH 700ML OF EMESIS W/ PHLEGM AND FOOD PARTICLES, LIGHT BROWN COLORED, ANTIEMETIC ADMINISTERED ORDERED, ASSISTED WITH ORAL HYGIENE, REQUESTING TO SHOWER, PT HAS CENTRAL LINE, EDUCATION PROVIDED, PT VERBALIZED UNDERSTANDING, CALL LIGHT WITHIN REACH, WILL PROVIDE BEDBATH.
--- NOTE | 2016-12-14 18:58 | NUR ---
PT RECEIVED BEDBATH AND CHANGE OF LINENS, HAD EPISODE OF VOMIT X1, ANTIEMETIC ADMINISTERED ORDERED, WAS ABLE TO TOLERATE DINNER WITHOUT GI DISTRESS, CONTINUES TO RECEIVE IV ABX TX, DRESSING CDI, NILDA DRAIN IN PLACE, NO OTHER SIGNIFICANT CHANGES NOTED, CARE ENDORSED TO NIGHT NURSE.
--- NOTE | 2016-12-14 19:42 | NUR ---
PT IS A/O X4, VERBAL RESPONSIVE, ABLE TO TELL WHAT HE NEEDS. LUNG SOUND CLEAR BILATERAL, NO COUGH, NO SOB, PT DENY ANY CHEST PAIN OR DISCOMFORT, BOWEL SOUND PRESENT ALL 4 QUADRANTS, NO DISTENTION, NO TENDER. RIGHT BKA, LLE TRACE EDEMA, DRESSING AT LEFT KNEE IS INTACT, NILDA DRAINAGE IS INTACT, SEROSANGUINOUS COLOR, CENTRAL LINE AT RIGHT IJ, DRESSING INTACT, NO LEAKING, NO INFILTRATION. ALL ADLS ASSIST, ALL NEED MET, CALL LIGHT IN REACH, WILL CONTINUE TO MONITOR.
[2016-12-14 22:42] VITALS: BP 160/79
--- NOTE | 2016-12-15 04:57 | NUR ---
PT IS SLEEPING, AWAKE BY TOUCH, DENY ANY RESPIRATORY DISTRESS, DENY ANY PAIN OR DISCOMFORT, CENTRAL LINE AT RIGHT JI, DRESSING INTACT, NO LEAKING, NO INFILTRATION. NILDA AT LEFT KNEE IS INTACT, WILL CONTINUE TO MONITOR.
[2016-12-15 06:27] VITALS: BP 138/66
--- NOTE | 2016-12-15 06:35 | NUR ---
CHANGE THE DRESSING AT I&D SIDE, NILDA TUBING IS INTACT, NO S/S OF DISCHARGE, NO BLEEDING, NO S/S OF INFECTION, SERGEI WRAP THE NEW DRESSING, EMPTY THE NILDA DRAINAGE 50ML. SEROSANGONIOUS COLOR, PT TOLERATED WELL, WILL CONTINUE TO MONITOR THE PT.
[2016-12-15 06:36] LABS: CALCIUM 6.9 mg/dL (8.5-10.1); CARBON DIOXIDE 25.4 mmol/L (21-32); CREATININE SERUM 2.1 mg/dL (0.7-1.3); MAGNESIUM 1.5 mg/dL (1.8-2.4); PHOSPHOROUS 2.8 mg/dL (2.5-4.9)
[2016-12-15 06:46] LABS: BASOPHIL % 0.9 % (0-2); PLATELET COUNT 332 x10^3mcL (130-400)
[2016-12-15 07:01] LABS: POTASSIUM SERUM 2.3 mmol/L (3.5-5.1)
--- NOTE | 2016-12-15 07:20 | NUR ---
POTASSIUM 2.3, HGB 6.0, HCT 18.5. DR ASCENCIO MADE AWARE.
--- NOTE | 2016-12-15 07:21 | NUR ---
PT RECEIVED FROM NIGHT NURSE IN NO ACUTE DISTRESS. PT SLEEPING IN BED. IVF RUNNING AT BEDSIDE. BED IN LOWEST POSITION. CALL LIGHT WITHIN REACH. WILL CONTINUE TO MONITOR.
[2016-12-15 07:45] VITALS: BP 153/79
[2016-12-15 11:41] LABS: rbc morphology (normal/abnorm) ABNORMAL (NORMAL)
--- NOTE | 2016-12-15 14:23 | NUR ---
PT RESTING IN BED IN NO ACUTE DISTRESS. MORPHINE GIVEN FOR PAIN TO L KNEE. RESPIRATIONS EVEN AND UNLABORED ON RA. IVF, K, AND MAG RUNNING AT BEDSIDE. BED IN LOWEST POSITION. CALL LIGHT WITHIN REACH. WILL CONTINUE TO MONITOR.
[2016-12-15 15:35] LABS: PLATELET COUNT 319 x10^3mcL (130-400)
[2016-12-15 16:04] LABS: RED CELL DISTRIBUTION WIDTH 19.2 % (11.5-14.5)
--- NOTE | 2016-12-15 16:12 | NUR ---
HEMOGLOBIN 5.8. HEMATOCRIT 18. DR ALAN NOTIFIED OF LABS
[2016-12-15 16:28] LABS: rbc morphology (normal/abnorm) ABNORMAL (NORMAL)
[2016-12-15 17:15] VITALS: BP 151/76
--- NOTE | 2016-12-15 19:19 | NUR ---
PT IS SLEEPING IN BED. RESPIRATIONS EVEN AND UNLABORED. IVF INFUSING AT BEDSIDE. BED IN LOWEST POSITION. CALL LIGHT WITHIN REACH. WILL ENDORSE TO NIGHT NURSE.
--- NOTE | 2016-12-15 19:21 | NUR ---
NURSING CO-SIGN THE DOCUMENTATION ENTERED BY THE RN NICOLAS HAS BEEN REVIEWED. REVIEWED/CO-SIGNED BY: Slime Jama DOCUMENTATION DONE BY: WADE GAY
--- NOTE | 2016-12-15 19:47 | NUR ---
RECEIVED PT FROM PREVIOUS SHIFT. PT A/OX4. DENIES PAIN. DENIES SOB ON RA. RIJ PATENT. CALL LIGHT WITHIN REACH, BED IN LOW POSITION. NILDA DRAIN TO L KNEE WITH SEROSANGUINOUS OUTPUT. WILL CONTINUE TO MONITOR.
[2016-12-15 21:25] VITALS: BP 151/75
--- NOTE | 2016-12-15 22:04 | NUR ---
BLOOD TRANSFUSION STARTED AT THIS TIME BY RAAD DIAZ. BLOOD WITNESSED AND VERIFIED BY LINDA DIAZ. VSS. WILL CONTINUE TO MONITOR.
--- NOTE | 2016-12-15 23:29 | NUR ---
BP 174/[address] ASCENCIO MADE AWARE. NO FURTHER ORDERS AT THIS TIME.
--- NOTE | 2016-12-16 01:26 | NUR ---
BLOOD TRANSFUSION COMPLETE. NO S/S OF ADVERSE REACTION. DR AWARE OF BP, STATES TO RECHECK IN 1 HOUR AFTER LASIX PO. WILL CONTINUE TO MONITOR.
--- NOTE | 2016-12-16 03:44 | NUR ---
PT RESTING AT THIS TIME IN NO ACUTE DISTRESS. RR EVEN AND UNLABORED. IV PATENT. CALL LIGHT WITHIN REACH, BED IN LOW POSITION. WILL CONTINUE TO MONITOR.
--- NOTE | 2016-12-16 04:28 | NUR ---
PT C/O 10/ PAIN TO L KNEE. MORPHINE INEFFECTIVE. DR ASCENCIO MADE AWARE. ORDER RECEIVED FOR DILAUDID. WILL MEDICATE WHEN AVAILABLE ON EMAR AND CONTINUE TO MONITOR.
[2016-12-16 06:08] LABS: CARBON DIOXIDE 25.7 mmol/L (21-32); CREATININE SERUM 1.8 mg/dL (0.7-1.3)
[2016-12-16 06:11] LABS: POTASSIUM SERUM 2.5 mmol/L (3.5-5.1)
[2016-12-16 06:34] VITALS: BP 168/91
[2016-12-16 06:58] LABS: BASOPHIL % 0.6 % (0-2); PLATELET COUNT 375 x10^3mcL (130-400)
[2016-12-16 07:06] LABS: RED CELL DISTRIBUTION WIDTH 21.6 % (11.5-14.5)
--- NOTE | 2016-12-16 07:15 | NUR ---
RECEIVED Pt. AAOX4, RESPIRATIONS EVEN AND UNLABORED. DENIES PAIN/DISCOMFORT. NO DISTRESS NOTED. IVF RUNNING TO CENTRAL LINE RIJ ALL PORTS FLUSHES WELL. DSG CDI. Pt. WITH OLD RIGHT BKA. LLE WITH SWELLING NOTED CAPILARRY REFILL < 3 SECONDS. BED LOW/LOCKED. CALL LIGHT IN REACH.
--- NOTE | 2016-12-16 07:53 | NUR ---
MADE ROUNDS WITH DR. CARDOSO AND MEDICINE TEAM, Pt. POSSIBLE DISCHARGE TODAY AND AGREED WITH PLAN OF CARE.
[2016-12-16 09:21] LABS: rbc morphology (normal/abnorm) ABNORMAL (NORMAL); schistocyte (helmet cell) 1+
[2016-12-16 09:31] VITALS: BP 113/56
[2016-12-16 13:46] VITALS: BP 146/86
[2016-12-16] MEDS ORDERED: ROC1PM IV (14:14)
[2016-12-16] MEDS ORDERED: NORCO1 TA2 PO (14:21)
[2016-12-16 15:40] VITALS: BP 146/86
--- NOTE | 2016-12-16 16:19 | NUR ---
Pt. C/O NAUSEA, ZOFRAN IVP ADMINISTER AND DR. ALAN MADE AWARE.
--- NOTE | 2016-12-16 16:45 | NUR ---
Pt. AAOX4, RESPIRATIONS EVEN AND UNLABORED. DENIES PAIN/DISCOMFORT AT THIS TIME. DENIES N/V AT THIS TIME. NO DISTRESS NOTED. ALL RX AND DISCHARGE INSTRUCTIONS EXPLAINED TO Pt. AND VERBALIZED UNDERSTANDING. Pt. ALSO INSTRUCTED TO FOLLOW UP WITH PCP AND VERBALIZED UNDERSTANDING. NILDA DRAIN AND DSG CHANGE TO LLE WOUND DONE BY DR. FLORES. LLE WITH SERGEI WRAP CDI. RIJ CENTRAL LINE DSG CHANGED CDI AT THIS TIME. Pt. LEFT WITH ALL BELONGINGS.
== END 2016-12-16 16:46 | disposition home or self-care (01) | DRG 710 ==
LOC: ED 14:14 → DU 20:23 → MU 12-05 00:05 → DU 12-05 00:05 → MU 12-06 09:09 → DU 12-09 00:34 → MU 12-09 15:58 → DU 12-10 16:02 → MU 12-12 10:55 → DU 12-12 11:20 → MU 12-12 12:43
PROVIDERS: Emergency Medicine; Family Medicine; Family Medicine Sports Medicine; Neuromusculoskeletal Medicine, Sports Medicine; ADMIT Family Medicine
PROC: 0S9D0ZZ Drainage of Left Knee Joint, Open Approach (ICD-10-PCS; principal; 2016-12-05 14:45)
PROC: 05HM33Z Insertion of Infusion Device into Right Internal Jugular Vein, Percutaneous Approach (ICD-10-PCS; 2016-12-10)
PROC: B543ZZA Ultrasonography of Right Jugular Veins, Guidance (ICD-10-PCS; 2016-12-10)
DX: A41.9 Sepsis, unspecified organism (principal); N17.0 Acute kidney failure with tubular necrosis; E43 Unspecified severe protein-calorie malnutrition; D68.69 Other thrombophilia; E11.51 Type 2 diabetes mellitus with diabetic peripheral angiopathy without gangrene; M00.9 Pyogenic arthritis, unspecified; E11.65 Type 2 diabetes mellitus with hyperglycemia; R65.20 Severe sepsis without septic shock; E87.1 Hypo-osmolality and hyponatremia; E83.42 Hypomagnesemia; D50.9 Iron deficiency anemia, unspecified; E78.5 Hyperlipidemia, unspecified; Z89.511 Acquired absence of right leg below knee; Z68.22 Body mass index [BMI] 22.0-22.9, adult; F11.23 Opioid dependence with withdrawal; T40.1X4A Poisoning by heroin, undetermined, initial encounter; R11.2 Nausea with vomiting, unspecified; Y92.230 Patient room in hospital as the place of occurrence of the external cause; Z79.84 Long term (current) use of oral hypoglycemic drugs; Z79.4 Long term (current) use of insulin
CPT/HCPCS: 76770; 82962; 83880; 84439; 94150; 97530-GP; 97542-GP; J0360; J0690; J1170; J1642; J1644; J1815; J1885; J2001; J2270; J2405; J2550; J2916; J3370; J3475; J3480; J3490; J7030; J7040; J7050; J7120; P9016; Q0092; Q0163

== ENCOUNTER 2016-12-18 19:45 | Emergency (ER) | payer MEDICAID ==
[~2016-12-18 19:45] MED LIST changes: +NORCO1 TA2 PO; +RIF300 PO; +ROC1PM IV
[2016-12-18 21:14] LABS: BASOPHIL % 0.6 % (0-2); PLATELET COUNT 400 x10^3mcL (130-400)
[2016-12-18 21:20] LABS: RED CELL DISTRIBUTION WIDTH 26.4 % (11.5-14.5)
[2016-12-18 21:28] LABS: BILIRUBIN TOTAL 0.7 mg/dL (0.20-1.00); CALCIUM 7.2 mg/dL (8.5-10.1); CARBON DIOXIDE 27.3 mmol/L (21-32); CREATININE SERUM 1.7 mg/dL (0.7-1.3); MAGNESIUM 1.4 mg/dL (1.8-2.4)
[2016-12-18 21:31] LABS: ALBUMIN 1.2 g/dL (3.4-5.0); TOTAL PROTEIN, SERUM 5.8 g/dL (6.4-8.2)
[2016-12-18 21:34] LABS: POTASSIUM SERUM 2.4 mmol/L (3.5-5.1)
[2016-12-18 23:02] VITALS: BP 163/94
== END 2016-12-18 23:02 | disposition left against medical advice (07) ==
LOC: ED 19:45
PROVIDERS: Emergency Medicine
DX: Z45.2 Encounter for adjustment and management of vascular access device (principal); M00.862 Arthritis due to other bacteria, left knee; E83.42 Hypomagnesemia; K92.1 Melena; D64.9 Anemia, unspecified; E88.09 Other disorders of plasma-protein metabolism, not elsewhere classified; J90 Pleural effusion, not elsewhere classified; R60.1 Generalized edema; I10 Essential (primary) hypertension; E11.9 Type 2 diabetes mellitus without complications
CPT/HCPCS: 83880; Q0092; Q0162

== ENCOUNTER 2018-03-13 12:02 | Inpatient (IN) | payer MEDICAID ==
[~2018-03-13] VITALS: Ht 182.9 cm; Wt 81.4 kg
[2018-03-13 12:39] LABS: BASOPHIL % 0.7 % (0-2); PLATELET COUNT 181 x10^3mcL (130-400); RED CELL DISTRIBUTION WIDTH 14.9 % (11.5-14.5)
[2018-03-13 13:04] LABS: BILIRUBIN TOTAL 0.31 mg/dL (0.20-1.00); CALCIUM 6.7 mg/dL (8.5-10.1); CARBON DIOXIDE 22.7 mmol/L (21-32); POTASSIUM SERUM 5.5 mmol/L (3.5-5.1); TOTAL PROTEIN, SERUM 7.3 g/dL (6.4-8.2)
[2018-03-13 13:07] LABS: ALBUMIN 2.6 g/dL (3.4-5.0); CREATININE SERUM 9.7 mg/dL (0.7-1.3)
[2018-03-13 13:10] LABS: FREE T4 1.06 ng/dL (0.76-1.46); FREE THYROXINE INDEX 2.2 ug/dL (1.4-4.5); T4(THYROXINE) 6.7 ug/dL (4.7-13.3)
[2018-03-13 13:16] LABS: T3 TOTAL 0.88 ng/mL
[2018-03-13] MEDS ORDERED: HUMALOG100 UNIT/1 (13:29)
[2018-03-13] MEDS ORDERED: LANTUS SOLOS100 U/M1 SC (13:31)
[2018-03-13 13:58] LABS: UA SPECIFIC GRAVITY 1.025 (1.005-1.035); microscopic required? YES; urine erythrocyte 2+ (NEGATIVE)
[2018-03-13 16:47] VITALS: BP 196/105
[2018-03-13 16:47] LABS: CHOLESTEROL/HDL RATIO 2.6; MAGNESIUM 1.5 mg/dL (1.8-2.4); PHOSPHOROUS 5.9 mg/dL (2.5-4.9)
[2018-03-13 16:50] VITALS: Ht 182.9 cm; Wt 81.4 kg
[2018-03-13 16:58] LABS: AMPHETAMINE QUAL UR NONE DETECTED (See below)
[2018-03-13 17:54] LABS: RED BLOOD CELLS 2.61 M/mm3 (4.52-5.90)
[2018-03-13 18:03] LABS: IRON 36 ug/dL (65-170)
[2018-03-13 18:12] LABS: TOTAL IRON BINDING CAPACITY 177 ug/dL (250-450)
[2018-03-13 20:43] VITALS: BP 171/94
[2018-03-13 20:57] LABS: CALCIUM 6.3 mg/dL (8.5-10.1); CARBON DIOXIDE 23.2 mmol/L (21-32); POTASSIUM SERUM 4.9 mmol/L (3.5-5.1)
[2018-03-13 20:59] LABS: CREATININE SERUM 9.5 mg/dL (0.7-1.3)
[2018-03-14] VITALS (9 sets, daily range): BP systolic 134–188; BP diastolic 69–99
[2018-03-14 07:23] LABS: BASOPHIL % 0.8 % (0-2); PLATELET COUNT 143 x10^3mcL (130-400)
[2018-03-14 07:58] LABS: CARBON DIOXIDE 20.4 mmol/L (21-32); CREATININE SERUM 9.8 mg/dL (0.7-1.3); POTASSIUM SERUM 4.7 mmol/L (3.5-5.1)
[2018-03-14 07:59] LABS: CALCIUM 6.3 mg/dL (8.5-10.1)
[2018-03-14 07:59] LABS: MAGNESIUM 1.5 mg/dL (1.8-2.4); PHOSPHOROUS 5.9 mg/dL (2.5-4.9)
[2018-03-14 08:22] LABS: RED CELL DISTRIBUTION WIDTH 14.9 % (11.5-14.5)
[2018-03-14 21:03] LABS: BASOPHIL % 0.6 % (0-2)
[2018-03-14 21:21] LABS: PLATELET COUNT 115 x10^3mcL (130-400)
[2018-03-15 05:47] VITALS: BP 156/86
[2018-03-15 06:55] LABS: CALCIUM 6.2 mg/dL (8.5-10.1); MAGNESIUM 1.5 mg/dL (1.8-2.4); POTASSIUM SERUM 4.6 mmol/L (3.5-5.1)
[2018-03-15 07:02] LABS: BASOPHIL % 0.9 % (0-2); CREATININE SERUM 9.6 mg/dL (0.7-1.3); PLATELET COUNT 133 x10^3mcL (130-400)
[2018-03-15 09:05] VITALS: BP 183/102
[2018-03-15 12:21] VITALS: BP 161/87
[2018-03-15 16:53] VITALS: BP 140/78
[2018-03-15 20:53] VITALS: BP 133/69
[2018-03-16 06:02] LABS: BASOPHIL % 0.4 % (0-2); PLATELET COUNT 213 x10^3mcL (130-400)
[2018-03-16 06:12] VITALS: BP 177/94
[2018-03-16 06:14] LABS: CALCIUM 7.2 mg/dL (8.5-10.1); CARBON DIOXIDE 22.7 mmol/L (21-32); MAGNESIUM 1.7 mg/dL (1.8-2.4); POTASSIUM SERUM 3.9 mmol/L (3.5-5.1)
[2018-03-16 06:20] LABS: CREATININE SERUM 9.9 mg/dL (0.7-1.3)
[2018-03-16 09:44] VITALS: BP 155/85
[2018-03-16 12:41] VITALS: BP 167/96
[2018-03-16 17:28] VITALS: BP 143/84
[2018-03-16 20:48] VITALS: BP 150/88
[2018-03-17] VITALS (7 sets, daily range): BP systolic 109–180; BP diastolic 65–98
[2018-03-17 07:13] LABS: BASOPHIL % 0.4 % (0-2); PLATELET COUNT 203 x10^3mcL (130-400); RED CELL DISTRIBUTION WIDTH 14.4 % (11.5-14.5)
[2018-03-17 07:27] LABS: CALCIUM 7.4 mg/dL (8.5-10.1); CARBON DIOXIDE 23.9 mmol/L (21-32); MAGNESIUM 1.6 mg/dL (1.8-2.4); POTASSIUM SERUM 4.3 mmol/L (3.5-5.1)
[2018-03-17 07:28] LABS: CREATININE SERUM 10.4 mg/dL (0.7-1.3)
[2018-03-18 06:00] VITALS: BP 92/54
[2018-03-18 07:49] LABS: PLATELET COUNT 206 x10^3mcL (130-400)
[2018-03-18 07:52] LABS: RED CELL DISTRIBUTION WIDTH 15.6 % (11.5-14.5)
[2018-03-18 08:18] LABS: CALCIUM 7.1 mg/dL (8.5-10.1); CARBON DIOXIDE 26.5 mmol/L (21-32); MAGNESIUM 1.4 mg/dL (1.8-2.4); PHOSPHOROUS 5.2 mg/dL (2.5-4.9)
[2018-03-18 08:37] LABS: CREATININE SERUM 8.5 mg/dL (0.7-1.3)
[2018-03-18 09:15] VITALS: BP 96/55
[2018-03-18 09:49] LABS: PLATELET COUNT 227 x10^3mcL (130-400)
[2018-03-18 09:54] LABS: BILIRUBIN TOTAL 0.22 mg/dL (0.20-1.00); POTASSIUM SERUM 4.1 mmol/L (3.5-5.1)
[2018-03-18 09:55] LABS: ALBUMIN 1.9 g/dL (3.4-5.0); TOTAL PROTEIN, SERUM 5.5 g/dL (6.4-8.2)
[2018-03-18 09:56] LABS: CREATININE SERUM 8.5 mg/dL (0.7-1.3)
[2018-03-18 10:13] LABS: RED CELL DISTRIBUTION WIDTH 15.6 % (11.5-14.5)
[2018-03-18 11:27] LABS: BAND NEUTROPHIL 5 % (0-10); BASOPHIL 0 % (0-2); MONOCYTE 3 % (0-7); SEGMENTED NEUTROPHILS 85 % (37-75)
[2018-03-18 11:28] LABS: PLATELET MORPHOLOGY PLATELETS NORMAL; rbc morphology (normal/abnorm) ABNORMAL (NORMAL)
[2018-03-18 11:47] LABS: BAND NEUTROPHIL 1 % (0-10); BASOPHIL 0 % (0-2); MONOCYTE 6 % (0-7); SEGMENTED NEUTROPHILS 86 % (37-75)
[2018-03-18 11:48] LABS: PLATELET MORPHOLOGY PLATELETS NORMAL; rbc morphology (normal/abnorm) ABNORMAL (NORMAL)
[2018-03-18 12:21] VITALS: BP 93/48
[2018-03-18 16:31] LABS: PLATELET COUNT 183 x10^3mcL (130-400)
[2018-03-18 16:37] LABS: RED CELL DISTRIBUTION WIDTH 15.8 % (11.5-14.5)
[2018-03-18 17:00] VITALS: BP 115/63
[2018-03-18 17:16] LABS: BAND NEUTROPHIL 8 % (0-10); BASOPHIL 0 % (0-2); MONOCYTE 4 % (0-7); SEGMENTED NEUTROPHILS 79 % (37-75); rbc morphology (normal/abnorm) ABNORMAL (NORMAL)
[2018-03-18 17:17] LABS: PLATELET MORPHOLOGY PLATELETS NORMAL
[2018-03-18 17:38] VITALS: BP 113/66
[2018-03-18 20:53] VITALS: BP 120/66
[2018-03-19] VITALS (8 sets, daily range): BP systolic 86–154; BP diastolic 39–85
[2018-03-19 07:31] LABS: albumin % urine (ife24hr) 40.5 % (.); alpha-2-globulin % ur(ife24hr) 9.9 % (.); beta globulin % urine(ife24hr) 17.6 % (.); gamma globulin urine (ife24hr) 25.1 % (.)
[2018-03-19 07:45] LABS: CALCIUM 7.2 mg/dL (8.5-10.1); CARBON DIOXIDE 25.4 mmol/L (21-32); MAGNESIUM 1.6 mg/dL (1.8-2.4); PHOSPHOROUS 3.5 mg/dL (2.5-4.9); POTASSIUM SERUM 3.7 mmol/L (3.5-5.1)
[2018-03-19 07:53] LABS: CREATININE SERUM 5.5 mg/dL (0.7-1.3)
[2018-03-19 08:00] LABS: BASOPHIL % 0.5 % (0-2); PLATELET COUNT 196 x10^3mcL (130-400); RED CELL DISTRIBUTION WIDTH 14.4 % (11.5-14.5)
[2018-03-19 16:16] LABS: APPEARANCE FLUID CLEAR; COLOR FLUID PALE YELLOW; RBC FLUID 31 /cumm; SOURCE FLUID THORACENTESIS; WBC FLUID 208 /cumm
[2018-03-19 17:03] LABS: LYMPHOCYTE FLUID 55 %
[2018-03-20 05:40] VITALS: BP 115/66
[2018-03-20 06:48] LABS: CALCIUM 7.1 mg/dL (8.5-10.1); CARBON DIOXIDE 32.3 mmol/L (21-32); MAGNESIUM 1.6 mg/dL (1.8-2.4); POTASSIUM SERUM 3.3 mmol/L (3.5-5.1)
[2018-03-20 08:25] LABS: BASOPHIL % 0.4 % (0-2); PLATELET COUNT 157 x10^3mcL (130-400)
[2018-03-20 08:26] LABS: RED CELL DISTRIBUTION WIDTH 14.9 % (11.5-14.5)
[2018-03-20 09:39] VITALS: BP 126/69
[2018-03-20 10:18] LABS: TOTAL PROTEIN, SERUM 5.2 g/dL (6.4-8.2)
[2018-03-20 12:50] VITALS: BP 123/72
[2018-03-20 17:23] VITALS: BP 119/74
[2018-03-20 20:56] VITALS: BP 113/68; BP 133/79
[2018-03-21 05:25] VITALS: BP 104/64
[2018-03-21 05:28] LABS: CALCIUM 6.8 mg/dL (8.5-10.1); CARBON DIOXIDE 31.2 mmol/L (21-32); MAGNESIUM 1.4 mg/dL (1.8-2.4)
[2018-03-21 05:35] LABS: CREATININE SERUM 5.1 mg/dL (0.7-1.3)
[2018-03-21 06:03] LABS: BASOPHIL % 0.5 % (0-2); PLATELET COUNT 209 x10^3mcL (130-400)
[2018-03-21 06:04] LABS: RED CELL DISTRIBUTION WIDTH 15.3 % (11.5-14.5)
[2018-03-21 09:06] VITALS: BP 104/63
[2018-03-21 10:55] VITALS: BP 104/63
[2018-03-21 13:45] VITALS: BP 122/68
[2018-03-21 17:38] VITALS: BP 127/74
[2018-03-21 20:33] VITALS: BP 106/64
[2018-03-22 05:15] VITALS: BP 119/71
[2018-03-22 06:26] LABS: BASOPHIL % 0.5 % (0-2); PLATELET COUNT 184 x10^3mcL (130-400)
[2018-03-22 06:38] LABS: CALCIUM 6.7 mg/dL (8.5-10.1); CARBON DIOXIDE 27.9 mmol/L (21-32); MAGNESIUM 1.6 mg/dL (1.8-2.4); POTASSIUM SERUM 4.7 mmol/L (3.5-5.1)
[2018-03-22 07:08] LABS: RED CELL DISTRIBUTION WIDTH 15.3 % (11.5-14.5)
[2018-03-22 07:09] LABS: CREATININE SERUM 5.9 mg/dL (0.7-1.3)
[2018-03-22 08:54] VITALS: BP 132/74
[2018-03-22 13:25] VITALS: BP 129/71
[2018-03-22 16:56] VITALS: BP 135/70
[2018-03-22 21:07] VITALS: BP 104/62
[2018-03-23 06:28] VITALS: BP 140/73
[2018-03-23 07:17] LABS: CARBON DIOXIDE 26.2 mmol/L (21-32); MAGNESIUM 1.4 mg/dL (1.8-2.4); PHOSPHOROUS 3.6 mg/dL (2.5-4.9); POTASSIUM SERUM 4.2 mmol/L (3.5-5.1)
[2018-03-23 07:23] LABS: CREATININE SERUM 4.7 mg/dL (0.7-1.3)
[2018-03-23 08:02] LABS: BASOPHIL % 0.6 % (0-2)
[2018-03-23 08:16] LABS: RED CELL DISTRIBUTION WIDTH 15.7 % (11.5-14.5)
[2018-03-23 09:24] LABS: rbc morphology (normal/abnorm) ABNORMAL (NORMAL)
[2018-03-23 09:27] VITALS: BP 136/76
[2018-03-23 09:28] LABS: PLATELET COUNT 47 x10^3mcL (130-400)
[2018-03-23 12:38] VITALS: BP 130/77
[2018-03-23 15:36] VITALS: BP 134/70
[2018-03-23 17:00] LABS: BASOPHIL % 0.8 % (0-2); PLATELET COUNT 235 x10^3mcL (130-400)
[2018-03-23 21:36] VITALS: BP 129/76
[2018-03-24 05:55] VITALS: BP 120/67
[2018-03-24 06:23] LABS: BASOPHIL % 0.6 % (0-2); PLATELET COUNT 203 x10^3mcL (130-400)
[2018-03-24 06:31] LABS: RED CELL DISTRIBUTION WIDTH 16.5 % (11.5-14.5)
[2018-03-24 07:09] LABS: CALCIUM 6.9 mg/dL (8.5-10.1); CARBON DIOXIDE 25.4 mmol/L (21-32); MAGNESIUM 1.5 mg/dL (1.8-2.4); PHOSPHOROUS 4.1 mg/dL (2.5-4.9); POTASSIUM SERUM 3.9 mmol/L (3.5-5.1)
[2018-03-24 07:15] LABS: CREATININE SERUM 5.9 mg/dL (0.7-1.3)
[2018-03-24 09:40] VITALS: BP 134/73
[2018-03-24 13:15] VITALS: BP 149/78
[2018-03-24 15:39] VITALS: BP 149/78
[2018-03-24 21:46] VITALS: BP 132/68
[2018-03-25 05:50] VITALS: BP 132/70
[2018-03-25 06:24] LABS: BASOPHIL % 0.5 % (0-2); PLATELET COUNT 240 x10^3mcL (130-400)
[2018-03-25 06:49] LABS: RED CELL DISTRIBUTION WIDTH 16.5 % (11.5-14.5)
[2018-03-25 07:01] LABS: CALCIUM 6.8 mg/dL (8.5-10.1); CARBON DIOXIDE 29.7 mmol/L (21-32); MAGNESIUM 1.6 mg/dL (1.8-2.4); PHOSPHOROUS 3.3 mg/dL (2.5-4.9); POTASSIUM SERUM 3.6 mmol/L (3.5-5.1)
[2018-03-25 07:15] LABS: CREATININE SERUM 4.8 mg/dL (0.7-1.3)
[2018-03-25 08:25] VITALS: BP 149/81
[2018-03-25 15:05] VITALS: BP 164/61
[2018-03-25 17:16] VITALS: BP 143/75
[2018-03-25 20:50] VITALS: BP 120/68
[2018-03-26 05:44] VITALS: BP 119/69
[2018-03-26 08:06] LABS: PLATELET COUNT 263 x10^3mcL (130-400)
[2018-03-26 08:21] LABS: CALCIUM 7.1 mg/dL (8.5-10.1); MAGNESIUM 1.6 mg/dL (1.8-2.4); PHOSPHOROUS 3.5 mg/dL (2.5-4.9); POTASSIUM SERUM 3.7 mmol/L (3.5-5.1)
[2018-03-26 08:27] LABS: CREATININE SERUM 5.9 mg/dL (0.7-1.3)
[2018-03-26 09:30] VITALS: BP 138/83
[2018-03-26 13:37] VITALS: BP 158/94
[2018-03-26 15:36] VITALS: BP 158/94
[2018-03-26] MEDS ORDERED: ADA30 PO (15:36)
[2018-03-26] MEDS ORDERED: NEU100 PO (15:38)
[2018-03-26 17:30] VITALS: BP 180/62
[2018-03-26 19:25] VITALS: BP 133/84
[2018-03-27] VITALS (8 sets, daily range): BP systolic 112–140; BP diastolic 60–80
[2018-03-27 06:12] LABS: BASOPHIL % 0.7 % (0-2); PLATELET COUNT 240 x10^3mcL (130-400)
[2018-03-27 06:56] LABS: RED CELL DISTRIBUTION WIDTH 17.3 % (11.5-14.5)
[2018-03-27 07:04] LABS: CALCIUM 7.2 mg/dL (8.5-10.1); CARBON DIOXIDE 27.5 mmol/L (21-32); MAGNESIUM 1.5 mg/dL (1.8-2.4); PHOSPHOROUS 2.8 mg/dL (2.5-4.9); POTASSIUM SERUM 3.4 mmol/L (3.5-5.1)
[2018-03-27 07:05] LABS: CREATININE SERUM 4.7 mg/dL (0.7-1.3)
[2018-03-28 06:20] VITALS: BP 125/67
[2018-03-28 08:29] LABS: BASOPHIL % 0.6 % (0-2); PLATELET COUNT 252 x10^3mcL (130-400)
[2018-03-28 08:35] LABS: CALCIUM 7.1 mg/dL (8.5-10.1); CARBON DIOXIDE 25.3 mmol/L (21-32); MAGNESIUM 1.6 mg/dL (1.8-2.4); PHOSPHOROUS 2.6 mg/dL (2.5-4.9); POTASSIUM SERUM 3.6 mmol/L (3.5-5.1)
[2018-03-28 08:39] LABS: RED CELL DISTRIBUTION WIDTH 17.2 % (11.5-14.5)
[2018-03-28 08:41] VITALS: BP 130/81
[2018-03-28 08:42] LABS: CREATININE SERUM 5.9 mg/dL (0.7-1.3)
[2018-03-28 12:13] VITALS: BP 135/74
[2018-03-28 17:23] VITALS: BP 109/65
[2018-03-28 19:20] VITALS: BP 113/69
[2018-03-29 05:39] VITALS: BP 128/66
[2018-03-29 07:33] LABS: CARBON DIOXIDE 26.2 mmol/L (21-32); MAGNESIUM 1.7 mg/dL (1.8-2.4); PHOSPHOROUS 3.3 mg/dL (2.5-4.9); POTASSIUM SERUM 3.6 mmol/L (3.5-5.1)
[2018-03-29 07:41] LABS: CREATININE SERUM 6.6 mg/dL (0.7-1.3)
[2018-03-29 08:23] LABS: BASOPHIL % 0.8 % (0-2); PLATELET COUNT 239 x10^3mcL (130-400); RED CELL DISTRIBUTION WIDTH 17.9 % (11.5-14.5)
[2018-03-29 09:37] VITALS: BP 134/73
[2018-03-29 13:01] VITALS: BP 100/68
[2018-03-29 17:44] VITALS: BP 119/66
[2018-03-29 21:12] VITALS: BP 123/55
[2018-03-30 05:22] VITALS: BP 139/64
[2018-03-30 07:51] LABS: BASOPHIL % 0.6 % (0-2); CALCIUM 6.9 mg/dL (8.5-10.1); MAGNESIUM 1.5 mg/dL (1.8-2.4); PHOSPHOROUS 2.2 mg/dL (2.5-4.9); PLATELET COUNT 220 x10^3mcL (130-400); POTASSIUM SERUM 3.4 mmol/L (3.5-5.1)
[2018-03-30 07:55] LABS: CREATININE SERUM 5.2 mg/dL (0.7-1.3)
[2018-03-30 08:49] VITALS: BP 139/64
[2018-03-30 09:34] VITALS: BP 155/47
[2018-03-30 13:10] VITALS: BP 148/65
[2018-03-30 17:28] VITALS: BP 143/67
[2018-03-30 21:14] VITALS: BP 158/77
[2018-03-31 06:03] VITALS: BP 131/66
[2018-03-31 06:56] LABS: BASOPHIL % 0.9 % (0-2); PLATELET COUNT 207 x10^3mcL (130-400)
[2018-03-31 06:59] LABS: RED CELL DISTRIBUTION WIDTH 17.9 % (11.5-14.5)
[2018-03-31 07:33] LABS: CALCIUM 7.4 mg/dL (8.5-10.1); CARBON DIOXIDE 25.3 mmol/L (21-32); MAGNESIUM 1.9 mg/dL (1.8-2.4); PHOSPHOROUS 3.4 mg/dL (2.5-4.9); POTASSIUM SERUM 3.8 mmol/L (3.5-5.1)
[2018-03-31 07:34] LABS: CREATININE SERUM 6.7 mg/dL (0.7-1.3)
[2018-03-31 09:21] VITALS: BP 170/70
[2018-03-31 13:52] VITALS: BP 147/74
[2018-03-31 17:11] VITALS: BP 159/78
[2018-03-31 21:51] VITALS: BP 147/76
[2018-04-01 05:42] VITALS: BP 182/89
[2018-04-01 08:01] LABS: BASOPHIL % 0.9 % (0-2); PLATELET COUNT 190 x10^3mcL (130-400)
[2018-04-01 08:12] LABS: RED CELL DISTRIBUTION WIDTH 17.7 % (11.5-14.5)
[2018-04-01 08:30] LABS: CALCIUM 7.6 mg/dL (8.5-10.1); CARBON DIOXIDE 22.7 mmol/L (21-32); MAGNESIUM 1.8 mg/dL (1.8-2.4); POTASSIUM SERUM 3.7 mmol/L (3.5-5.1)
[2018-04-01 09:05] LABS: CREATININE SERUM 5.7 mg/dL (0.7-1.3)
[2018-04-01 09:49] VITALS: BP 166/85
[2018-04-01 12:19] VITALS: BP 117/63
[2018-04-01] MEDS ORDERED: NEU100 PO (14:34)
[2018-04-01 14:51] VITALS: BP 117/63
== END 2018-04-01 16:00 | disposition home or self-care (01) | DRG 194 ==
LOC: ED 12:02 → DU 14:46
PROVIDERS: Emergency Medicine; Family Medicine; General Practice; Internal Medicine
PROC: 05HY33Z Insertion of Infusion Device into Upper Vein, Percutaneous Approach (ICD-10-PCS; 2018-03-13)
PROC: 30233N1 Transfusion of Nonautologous Red Blood Cells into Peripheral Vein, Percutaneous Approach (ICD-10-PCS; principal; 2018-03-14)
PROC: 0JH63XZ Insertion of Tunneled Vascular Access Device into Chest Subcutaneous Tissue and Fascia, Percutaneous Approach (ICD-10-PCS; 2018-03-17)
PROC: 02HV33Z Insertion of Infusion Device into Superior Vena Cava, Percutaneous Approach (ICD-10-PCS; 2018-03-17)
PROC: B548ZZA Ultrasonography of Superior Vena Cava, Guidance (ICD-10-PCS; 2018-03-17)
PROC: 0W993ZZ Drainage of Right Pleural Cavity, Percutaneous Approach (ICD-10-PCS; 2018-03-19)
DX: I13.2 Hypertensive heart and chronic kidney disease with heart failure and with stage 5 chronic kidney disease, or end stage renal disease (principal); J96.01 Acute respiratory failure with hypoxia; N17.0 Acute kidney failure with tubular necrosis; E43 Unspecified severe protein-calorie malnutrition; I50.43 Acute on chronic combined systolic (congestive) and diastolic (congestive) heart failure; E11.21 Type 2 diabetes mellitus with diabetic nephropathy; E11.22 Type 2 diabetes mellitus with diabetic chronic kidney disease; G93.41 Metabolic encephalopathy; I16.0 Hypertensive urgency; N18.5 Chronic kidney disease, stage 5; J90 Pleural effusion, not elsewhere classified; F11.10 Opioid abuse, uncomplicated; N39.0 Urinary tract infection, site not specified; D63.1 Anemia in chronic kidney disease; E83.39 Other disorders of phosphorus metabolism; E83.51 Hypocalcemia; E87.5 Hyperkalemia; E83.42 Hypomagnesemia; E02 Subclinical iodine-deficiency hypothyroidism; Z79.4 Long term (current) use of insulin; Z99.81 Dependence on supplemental oxygen; Z68.24 Body mass index [BMI] 24.0-24.9, adult; Z89.511 Acquired absence of right leg below knee; F17.210 Nicotine dependence, cigarettes, uncomplicated; Z91.19 Patient's noncompliance with other medical treatment and regimen
CPT/HCPCS: 32555; 82962; 83880; 84156; 84166; 84439; 86335; 86580; 87116; 87206; 88344; A4301; C1729; J0696; J0885-EC; J1200; J1450; J1644; J1815; J1940; J2001; J2060; J2250; J2310; J2405; J2916; J3010; J3475; J3490; J7030; J7040; J7050; J7620; P9016; Q0092; Q0163

== ENCOUNTER 2019-03-13 13:20 | Emergency (ER) | payer OTHER ==
[~2019-03-13] VITALS: Ht 182.9 cm; Wt 72.6 kg
[~2019-03-13 13:20] MED LIST changes: +ADA30 PO; +HUMALOG100 UNIT/1; +LANTUS SOLOS100 U/M1 SC; +NEU100 PO
[2019-03-13 14:02] VITALS: BP 132/82; Ht 182.9 cm; Wt 72.6 kg
== END 2019-03-13 16:42 | disposition left against medical advice (07) ==
LOC: ED 13:20
DX: Z53.21 Procedure and treatment not carried out due to patient leaving prior to being seen by health care provider (principal)

== ENCOUNTER 2019-03-13 17:31 | Emergency (ER) | payer OTHER ==
[~2019-03-13] VITALS: Ht 182.9 cm; Wt 72.6 kg
[2019-03-13 18:12] VITALS: BP 123/70; Ht 182.9 cm; Wt 72.6 kg
== END 2019-03-13 20:57 | disposition home or self-care (01) ==
LOC: ED 17:31
DX: S80.01XA Contusion of right knee, initial encounter (principal); E11.22 Type 2 diabetes mellitus with diabetic chronic kidney disease; I12.0 Hypertensive chronic kidney disease with stage 5 chronic kidney disease or end stage renal disease; N18.6 End stage renal disease; Z99.2 Dependence on renal dialysis; W18.30XA Fall on same level, unspecified, initial encounter; Y93.89 Activity, other specified; Y92.89 Other specified places as the place of occurrence of the external cause; Y99.8 Other external cause status

== ENCOUNTER 2020-06-23 08:23 | Emergency (ER) | payer OTHER ==
[~2020-06-23] VITALS: Ht 170.2 cm; Wt 61.2 kg
[2020-06-23 08:36] VITALS: Ht 170.2 cm; Wt 61.2 kg
[2020-06-23 09:25] LABS: BASOPHIL % 0.8 % (0.2-1.5)
[2020-06-23 10:19] LABS: ALBUMIN 2.4 g/dL (3.4-5.0); ALKALINE PHOSPHATASE 80 U/L (46-116); ALT/SGPT 20 U/L (16-63); AST/SGOT 36 U/L (15-37); BILIRUBIN TOTAL 0.9 mg/dL (0.20-1.00); CALCIUM 8.5 mg/dL (8.5-10.1); CARBON DIOXIDE 30.2 mmol/L (21-32); CHLORIDE SERUM 93 mmol/L (98-107); CHOLESTEROL 90 mg/dL (<200); CREATININE SERUM 6.9 mg/dL (0.7-1.3); GFR1 9 mL/min; GLUCOSE SERUM 167 mg/dL (74-106); HDL CHOLESTEROL 9 mg/dL (40-60); POTASSIUM SERUM 3.9 mmol/L (3.5-5.1); SODIUM SERUM 134 mmol/L (136-145); TOTAL PROTEIN, SERUM 6.7 g/dL (6.4-8.2)
[2020-06-23 10:22] LABS: PLATELET COUNT 119 x10^3mcL (152-348); RED CELL DISTRIBUTION WIDTH 15.6 % (12.1-16.2)
[2020-06-23 13:29] LABS: C REACTIVE PROTEIN 38.5 mg/dL (<=0.9)
[2020-06-23 14:08] VITALS: BP 120/81
== END 2020-06-23 14:08 | disposition short-term general hospital (02) ==
LOC: ED 08:23
PROVIDERS: Emergency Medicine
DX: I63.9 Cerebral infarction, unspecified (principal); J18.9 Pneumonia, unspecified organism; R74.8 Abnormal levels of other serum enzymes; F11.10 Opioid abuse, uncomplicated; I12.0 Hypertensive chronic kidney disease with stage 5 chronic kidney disease or end stage renal disease; E11.22 Type 2 diabetes mellitus with diabetic chronic kidney disease; N18.6 End stage renal disease; Z89.511 Acquired absence of right leg below knee
CPT/HCPCS: 82962; 83880; 85378; 87804; G0480; J0456; J0696; J3370; J7050; J7060; U0003